=== PATIENT | female | born 1940 | race Caucasian/White ===

== ENCOUNTER 2016-08-25 11:21 | Outpatient (CLI) | payer MEDICARE, OTHER | END 2016-08-25 11:22 | disposition home or self-care (01) | DX: Z12.31 Encounter for screening mammogram for malignant neoplasm of breast (principal) ==

== ENCOUNTER 2016-10-31 08:22 | Outpatient (CLI) | payer MEDICARE, OTHER | END 2016-10-31 08:23 | disposition home or self-care (01) | DX: Z00.00 Encounter for general adult medical examination without abnormal findings (principal); K51.50 Left sided colitis without complications; R73.9 Hyperglycemia, unspecified; E78.5 Hyperlipidemia, unspecified; R07.89 Other chest pain; K59.00 Constipation, unspecified ==

== ENCOUNTER 2017-08-25 11:17 | Outpatient (CLI) | payer MEDICARE, OTHER ==
--- NOTE | 2017-08-26 16:08 | Mammography Report ---
DATE OF SERVICE: 08/25/2017 DIGITAL SCREENING MAMMOGRAM: 08/25/2017 CLINICAL INDICATION: A 77-year-old nulliparous patient with history of bilateral reduction, for screening. COMPARISON: 08/2016, 08/2015, 07/2014, 01/2013, 01/2011. TECHNIQUE: Routine CC and MLO projections were obtained of the breasts. FINDINGS: The breasts again demonstrate scattered fibroglandular densities bilaterally. Coarse and punctate, typically benign calcifications are present. No suspicious masses, clustered microcalcifications, or regions of architectural distortion are identified. IMPRESSION: BENIGN FINDINGS. RECOMMENDATION: ROUTINE ANNUAL SCREENING UNLESS OTHERWISE CLINICALLY INDICATED. BIRADS CATEGORY 2-BENIGN FINDINGS. STANDARD QUALIFYING STATEMENTS: 1. This examination was reviewed with the aid of Computer-Aided Detection (CAD). 2. A negative or benign imaging report should not delay biopsy if clinically suspicious findings are present. Consider surgical consultation if warranted. More than 5% of cancers are not identified by imaging. 3. Dense breasts may obscure an underlying neoplasm. TD: 08/26/2017 17:07
== END 2017-08-25 11:18 | disposition home or self-care (01) ==
LOC: DI 11:17
PROVIDERS: ATTEND Physician Assistant Medical
DX: Z12.31 Encounter for screening mammogram for malignant neoplasm of breast (principal)
CPT/HCPCS: 77067

== ENCOUNTER 2017-08-27 08:29 | Outpatient (CLI) | payer MEDICARE, OTHER ==
[2017-08-27 09:33] LABS: ALBUMIN 3.5 g/dL (3.2-5.5); ALBUMIN/GLOBULIN RATIO 1.1 (1.0-2.2); ALKALINE PHOSPHATASE 61 IU/L (42-121); ALT ALANINE AMINOTRANSFERASE 32 IU/L (10-60); AST ASPARTATE AMINOTRANSFERASE 36 IU/L (10-42); BILIRUBIN,TOTAL 0.9 mg/dL (0.2-1.0); BUN - BLOOD UREA NITROGEN 14 mg/dL (6-20); CALCIUM 8.9 mg/dL (8.5-10.3); CARBON DIOXIDE - CO2 25 mmol/L (21-32); CHLORIDE 104 mmol/L (101-111); CREATININE 0.7 mg/dL (0.4-1.0); GFR - MDRD 82 (>89); GLUCOSE 111 mg/dL (70-100); SODIUM 139 mmol/L (135-145); TOTAL PROTEIN 6.7 g/dL (6.7-8.2)
[2017-08-27 09:34] LABS: CHOL/HDL RATIO 4.5 (<4.4); CHOLESTEROL 253 mg/dL; HDL CHOLESTEROL 56 mg/dL; LDL CHOLESTEROL,CALCULATED 177 mg/dL; LDL/HDL RATIO 3.2 (<4.4); VLDL CHOLESTEROL 20 mg/dL
[2017-08-27 09:35] LABS: BASOPHILS % (AUTO) 0.7 %; EOSINOPHILS # (AUTO) 0.1 10^3/uL (0.0-0.7); EOSINOPHILS % (AUTO) 2.3 %; HGB - HEMOGLOBIN 13.1 g/dL (12.0-16.0); LYMPHOCYTES # (AUTO) 2.1 10^3/uL (1.5-3.5); LYMPHOCYTES % (AUTO) 34.2 %; MEAN CORPUSCULAR HEMOGLOBIN 33.8 pg (27.0-31.0); MEAN CORPUSCULAR HGB CONC 34.7 g/dL (32.0-36.0); MEAN CORPUSCULAR VOLUME 97.4 fL (81.0-99.0); MEAN PLATELET VOLUME 9.9 fL (7.9-10.8); MONOCYTES # (AUTO) 0.5 10^3/uL (0.0-1.0); MONOCYTES % (AUTO) 7.9 %; NEUTROPHILS # (AUTO) 3.4 10^3/uL (1.5-6.6); NEUTROPHILS % (AUTO) 54.9 %; PLT - PLATELET COUNT 213 10^3/uL (130-450); RED BLOOD COUNT 3.87 10^6/uL (4.20-5.40); RED CELL DISTRIBUTION WIDTH 13.1 % (12.0-15.0); WHITE BLOOD COUNT 6.3 x10^3/uL (4.8-10.8)
[2017-08-27 09:48] LABS: CRP - C-REACTIVE PROTEIN < 1.0 mg/dL (0-1.0)
[2017-08-27 10:14] LABS: HB2 TOTAL 13.9 g/dL; HEMOGLOBIN A1C 0.53 g/dL; HEMOGLOBIN A1C % 5.6 % (4.6-6.2)
== END 2017-08-27 08:30 | disposition home or self-care (01) ==
LOC: LAB 08:29
PROVIDERS: ATTEND Physician Assistant Medical
DX: Z79.899 Other long term (current) drug therapy (principal); R73.01 Impaired fasting glucose; E78.5 Hyperlipidemia, unspecified; E55.9 Vitamin D deficiency, unspecified
CPT/HCPCS: 36415; 80053; 80061; 81599; 82306; 83036; 83721; 85025; 86140

== ENCOUNTER 2017-12-15 14:28 | Outpatient (CLI) | payer MEDICARE, OTHER ==
[2017-12-15 15:19] LABS: ALBUMIN 3.6 g/dL (3.2-5.5); ALBUMIN/GLOBULIN RATIO 1.1 (1.0-2.2); BILIRUBIN,TOTAL 0.7 mg/dL (0.2-1.0); CALCIUM 8.9 mg/dL (8.5-10.3); CREATININE 0.7 mg/dL (0.4-1.0); TOTAL PROTEIN 6.9 g/dL (6.7-8.2)
== END 2017-12-15 14:29 | disposition home or self-care (01) ==
LOC: LAB 14:28
PROVIDERS: ATTEND Physician Assistant Medical
DX: I50.9 Heart failure, unspecified (principal)
CPT/HCPCS: 36415; 80053; 83880

== ENCOUNTER 2017-12-19 09:19 | Outpatient (CLI) | payer MEDICARE, OTHER | END 2017-12-19 09:20 | disposition home or self-care (01) | LOC: DI 09:19 | PROVIDERS: ATTEND Physician Assistant Medical | DX: I50.9 Heart failure, unspecified (principal); R60.0 Localized edema; E87.6 Hypokalemia | CPT/HCPCS: 80053 ==

== ENCOUNTER 2017-12-21 09:25 | Outpatient (CLI) | payer MEDICARE, OTHER | END 2017-12-21 09:26 | disposition home or self-care (01) | LOC: DI 09:25 | PROVIDERS: ATTEND Physician Assistant Medical | DX: I50.9 Heart failure, unspecified (principal); I51.7 Cardiomegaly; E87.6 Hypokalemia | CPT/HCPCS: 36415; 80053; 93306 ==

== ENCOUNTER 2017-12-21 10:23 | Outpatient (CLI) | payer MEDICARE, OTHER ==
[2017-12-21 11:49] LABS: ALBUMIN 3.7 g/dL (3.2-5.5); BILIRUBIN,TOTAL 0.7 mg/dL (0.2-1.0); CREATININE 0.5 mg/dL (0.4-1.0); TOTAL PROTEIN 7.3 g/dL (6.7-8.2)
== END 2017-12-21 10:24 | disposition home or self-care (01) ==
LOC: LAB 10:23
PROVIDERS: ATTEND Physician Assistant Medical
DX: E87.6 Hypokalemia (principal)
CPT/HCPCS: 36415; 80053

== ENCOUNTER 2017-12-23 20:05 | Outpatient (CLI) | payer MEDICARE, OTHER ==
--- NOTE | 2017-12-25 17:29 | Ultrasound Report ---
EXAM: BILATERAL LOWER EXTREMITY VENOUS ULTRASOUND EXAM DATE: 12/23/2017 08:17 PM. CLINICAL HISTORY: Pain in right and left lower limb, dependent edema. COMPARISON: 02/21/2011. TECHNIQUE: Real-time sonographic vascular imaging was performed by the bobbin dumper through the lower extremities utilizing both color-flow and Doppler spectral analysis. Multiple site safety representative static i mages were saved for review. FINDINGS: Right: Common Femoral Vein (CFV): Normal. CFV-GSV Junction: Normal. Profunda Femoral Vein (PFV): Normal. Femoral Vein (FV) Prox: Normal. Femoral Vein (FV) Mid: Normal. Femoral Vein (FV) Dist: Normal. Popliteal Vein: Normal. Posterior Tibial Veins: Normal. Peroneal Veins: Normal. Left: Common Femoral Vein (CFV): Normal. CFV-GSV Junction: Normal. Profunda Femoral Vein (PFV): Normal. Femoral Vein (FV) Prox: Normal. Femoral Vein (FV) Mid: Normal. Femoral Vein (FV) Dist: Normal. Popliteal Vein: Normal. Posterior Tibial Veins: Normal. Peroneal Veins: Normal. Other: In the right lateral leg, there is a complex debris-containing collection measuring 3.8 x 1.2 x 1 cm. In the left lateral knee, there is a second collection measuring 3 x 0.6 x 1.3 cm. IMPRESSION: 1. Soft tissue collections in bilateral knees larger on the right than on the left. Differential incl udes a seroma or hematoma. Correlate clinically. No definite connection with the joint space to sugge st a popliteal fossa cyst. 2. No evidence for deep venous thrombosis bilaterally. [facility] Referring Provider Line: [phone] SITE ID: [id number]
== END 2017-12-23 20:06 | disposition home or self-care (01) ==
LOC: DI 20:05
PROVIDERS: ATTEND Physician Assistant Medical
DX: M79.604 Pain in right leg (principal); M79.605 Pain in left leg; R60.0 Localized edema
CPT/HCPCS: 93970

== ENCOUNTER 2018-05-05 10:15 | Outpatient (CLI) | payer MEDICARE, OTHER ==
[2018-05-05 10:45] LABS: BASOPHILS # (AUTO) 0.1 10^3/uL (0.0-0.1); BASOPHILS % (AUTO) 0.8 %; EOSINOPHILS # (AUTO) 0.1 10^3/uL (0.0-0.7); EOSINOPHILS % (AUTO) 1.5 %; HGB - HEMOGLOBIN 13.9 g/dL (12.0-16.0); LYMPHOCYTES # (AUTO) 1.8 10^3/uL (1.5-3.5); LYMPHOCYTES % (AUTO) 25.9 %; MEAN CORPUSCULAR HEMOGLOBIN 34.7 pg (27.0-31.0); MEAN CORPUSCULAR HGB CONC 35.5 g/dL (32.0-36.0); MEAN CORPUSCULAR VOLUME 97.7 fL (81.0-99.0); MEAN PLATELET VOLUME 9.5 fL (7.9-10.8); MONOCYTES # (AUTO) 0.5 10^3/uL (0.0-1.0); MONOCYTES % (AUTO) 7.2 %; NEUTROPHILS # (AUTO) 4.6 10^3/uL (1.5-6.6); NEUTROPHILS % (AUTO) 64.6 %; PLT - PLATELET COUNT 239 10^3/uL (130-450); RED BLOOD COUNT 4.01 10^6/uL (4.20-5.40); RED CELL DISTRIBUTION WIDTH 13.3 % (12.0-15.0); WHITE BLOOD COUNT 7.1 x10^3/uL (4.8-10.8)
[2018-05-05 11:06] LABS: ALBUMIN 3.7 g/dL (3.2-5.5); ALBUMIN/GLOBULIN RATIO 0.9 (1.0-2.2); ALKALINE PHOSPHATASE 67 IU/L (42-121); ALT ALANINE AMINOTRANSFERASE 29 IU/L (10-60); AST ASPARTATE AMINOTRANSFERASE 35 IU/L (10-42); BILIRUBIN,TOTAL 0.8 mg/dL (0.2-1.0); BUN - BLOOD UREA NITROGEN 15 mg/dL (6-20); CARBON DIOXIDE - CO2 25 mmol/L (21-32); CHLORIDE 103 mmol/L (101-111); CREATININE 0.7 mg/dL (0.4-1.0); GFR - MDRD 81 (>89); GLUCOSE 123 mg/dL (70-100); SODIUM 137 mmol/L (135-145); TOTAL PROTEIN 7.6 g/dL (6.7-8.2)
[2018-05-05 11:20] LABS: CRP - C-REACTIVE PROTEIN < 1.0 mg/dL (0-1.0)
== END 2018-05-05 10:16 | disposition home or self-care (01) ==
LOC: LAB 10:15
PROVIDERS: ATTEND Internal Medicine Gastroenterology
DX: D12.2 Benign neoplasm of ascending colon (principal); K59.00 Constipation, unspecified; K64.8 Other hemorrhoids; K51.50 Left sided colitis without complications
CPT/HCPCS: 36415; 80053; 85025; 85651; 86140

== ENCOUNTER 2018-08-23 11:08 | Outpatient (CLI) | payer MEDICARE, OTHER ==
--- NOTE | 2018-08-23 12:22 | CT Report ---
Reason: CHRONIC SINUSITIS,DIZZINESS AND GIDDINESS,HEADACHE Procedure Date: 08/23/2018 Accession Number: [id number] / [id number] Procedure: CT - Sinuses CPT Code: FULL RESULT: EXAM: CT SINUS EXAM DATE: 08/23/2018 11:23 AM. HISTORY: Chronic sinusitis, dizziness and giddiness, headache. COMPARISONS: None. TECHNIQUE: Routine multi-axial CT imaging performed through the sinuses. Iodinated IV contrast: None. Reconstructions: Multiplanar reformats. In accordance with CT protocol optimization, one or more of the following dose reduction techniques were utilized for this exam: automated exposure control, adjustment of mA and/or KV based on patient size, or use of iterative reconstructive technique. FINDINGS: RIGHT Frontal: Normal. Ethmoid: Normal. Maxillary: Normal. Sphenoid: Normal. Drainage Pathways: The frontal recess, ostiomeatal complex and sphenoethmoidal recess are patent and normal. LEFT Frontal: Normal. Ethmoid: Normal. Maxillary: Pronounced mucoperiosteal thickening with possible dental etiology given molar protrusion towards the left maxillary sinus with dental disease. Sphenoid: Normal. Drainage Pathways: The frontal recess, ostiomeatal complex and sphenoethmoidal recess are patent and normal. Nasal Cavity: Normal. No mass or significant anatomic abnormality evident. Osseous Structures: Unremarkable. Orbits: Unremarkable. Other: None. IMPRESSION: Left maxillary chronic sinusitis with imaging suggestive of possible dental etiology. [facility]
== END 2018-08-23 11:09 | disposition home or self-care (01) ==
LOC: DI 11:08
PROVIDERS: ATTEND Physician Assistant Medical
DX: J32.0 Chronic maxillary sinusitis (principal)
CPT/HCPCS: 70486

== ENCOUNTER 2018-10-08 06:16 | Emergency (ER) | payer MEDICARE, OTHER ==
[2018-10-08 06:48] LABS: BASOPHILS # (AUTO) 0.1 10^3/uL (0.0-0.1); BASOPHILS % (AUTO) 1.4 %; EOSINOPHILS # (AUTO) 0.1 10^3/uL (0.0-0.7); EOSINOPHILS % (AUTO) 2.1 %; HGB - HEMOGLOBIN 13.5 g/dL (12.0-16.0); LYMPHOCYTES # (AUTO) 2.1 10^3/uL (1.5-3.5); LYMPHOCYTES % (AUTO) 31.4 %; MEAN CORPUSCULAR HEMOGLOBIN 34.2 pg (27.0-31.0); MEAN CORPUSCULAR HGB CONC 35.4 g/dL (32.0-36.0); MEAN CORPUSCULAR VOLUME 96.8 fL (81.0-99.0); MEAN PLATELET VOLUME 9.4 fL (7.9-10.8); MONOCYTES # (AUTO) 0.5 10^3/uL (0.0-1.0); MONOCYTES % (AUTO) 7.9 %; NEUTROPHILS # (AUTO) 3.9 10^3/uL (1.5-6.6); NEUTROPHILS % (AUTO) 57.2 %; PLT - PLATELET COUNT 240 10^3/uL (130-450); RED BLOOD COUNT 3.95 10^6/uL (4.20-5.40); RED CELL DISTRIBUTION WIDTH 13.7 % (12.0-15.0); WHITE BLOOD COUNT 6.8 x10^3/uL (4.8-10.8)
--- NOTE | 2018-10-08 06:57 | XRAY Report ---
Reason: chest pain Procedure Date: 10/08/2018 Accession Number: [id number] / [id number] Procedure: XR - Chest 1 View X-Ray CPT Code: 73426 FULL RESULT: EXAM: CHEST RADIOGRAPHY EXAM DATE: 10/08/2018 06:48 AM. CLINICAL HISTORY: Chest pain. COMPARISON: CHEST 2 VIEW PA/LAT 09/28/2015 2:21 PM. TECHNIQUE: 1 view. FINDINGS: Lungs/Pleura: Mild atelectasis or infiltrate at the right base. No pleural effusion. No pneumothorax. Mediastinum: Within exam limitations, heart is mildly enlarged. Other: Osteopenia. IMPRESSION: 1. Mild cardiomegaly. 2. Mild atelectasis or infiltrate at the right base. [facility]
[2018-10-08 07:07] LABS: ALBUMIN 3.7 g/dL (3.2-5.5); ALBUMIN/GLOBULIN RATIO 1.1 (1.0-2.2); BILIRUBIN,TOTAL 0.7 mg/dL (0.2-1.0); CALCIUM 8.9 mg/dL (8.5-10.3); CREATININE 0.5 mg/dL (0.4-1.0); TOTAL PROTEIN 7.1 g/dL (6.7-8.2)
[2018-10-08] MEDS ORDERED: IPRATROPIUM/ALBUTEROL 3 ML NEB INH STA (07:29)
--- NOTE | 2018-10-08 07:53 | ED Physician Documentation ---
PD HPI CHEST PAIN - Stated complaint Stated Complaint: CHEST PAIN - Chief complaint Chief Complaint: Cardiac - History obtained from History obtained from: Patient, Family () - History of Present Illness Timing - onset: Last night Timing - onset during: Rest Timing - details: Still present Quality: Pain Location: Left chest Worsened by: Position (Lying on left side.) Associated symptoms: Cough Similar symptoms before: Work up / diagnostics (Similar symptoms three years ago. Work-up in ED led to diagnosis of musculoskeletal pain.) - Additional information Additional information: The patient is a 78-year-old female who presents with left lower chest pain. Her pain started last night about 2 AM while in bed. She noticed a rapid heart beat at that time. The palpitations lasted for about 1 hour before resolving spontaneously. Her chest pain continues. She denies any associated shortness of breath, lightheadedness, nausea or vomitting. Her pain is worse when lying on her left side. She has had a cough that has been persistent for the past 4 months. She has undergone treatment with amoxicillin 3 months ago, and more recently had a 3-week course of amoxicillin for sinus infection. She denies fever or abdominal pain. She had a similar episode about 3 years ago. She was seen here at that time and workup was negative for cardiac etiology. At that time it was suspected musculoskeletal etiology. Review of Systems Constitutional: denies: Fever Ears: denies: Tinnitus/ringing Nose: denies: Congestion Throat: denies: Sore throat Cardiac: reports: Chest pain / pressure Respiratory: reports: Cough. denies: Dyspnea GI: denies: Abdominal Pain, Nausea, Vomiting : denies: Dysuria Skin: denies: Rash Musculoskeletal: denies: Neck pain, Back pain, Extremity pain Neurologic: denies: Focal weakness, Numbness, Headache PD PAST MEDICAL HISTORY - Past Medical History Past Medical History: Yes Cardiovascular: Hypertension, Coronary artery disease Endocrine/Autoimmune: None HEENT: Glaucoma - Past Surgical History Past Surgical History: Yes General: Cholecystectomy, Appendectomy Ortho: Hip replacement /MULTIGRAPHER: Breast reduction Cardiovascular: Other - Present Medications Home Medications: Ambulatory Orders Medication Instructions Recorded Confirmed Furosemide [Lasix] 40 mg PO DAILY 09/28/15 01/16/16 Lisinopril 10 mg PO DAILY 09/28/15 01/16/16 Mesalamine [Lialda] 4 packet PO DAILY 09/28/15 01/16/16 Metoprolol Tartrate 25 mg PO DAILY 09/28/15 01/16/16 Potassium Chloride 10 meq PO DAILY 09/28/15 01/16/16 Remicade 09/28/15 traMADol [Ultram] 50 mg PO Q4-6H PRN #20 tablet 01/16/16 Albuterol Sulf [Ventolin Hfa 1 - 2 puffs INH Q4HR PRN #1 inhaler 10/08/18 Inhaler] - Allergies Allergies/Adverse Reactions: Allergies Allergy/AdvReac Type Severity Reaction Status Date / Time ciprofloxacin [From Cipro] Allergy Edema Verified 10/08/18 06:35 ciprofloxacin HCl * Allergy Edema Verified 10/08/18 06:35 [From Cipro] metronidazole [From Flagyl] Allergy Emesis Verified 10/08/18 06:35 - Social History Does the pt smoke?: No Smoking Status: Never smoker Does the pt drink ETOH?: Yes Does the pt have substance abuse?: No - Immunizations Immunizations are current?: No - POLST Patient has POLST: No PD ED PE NORMAL - Vitals Vital signs reviewed: Yes (hypertensive) - General General: Alert and oriented X 3, Well developed/nourished - HEENT HEENT: Atraumatic, Pharynx benign - Neck Neck: No adenopathy, No JVD - Cardiac Cardiac: RRR, No murmur - Respiratory Respiratory: No respiratory distress, Other (Expiratory wheezing on the left, clear on the right.) - Abdomen Abdomen: Soft, Non tender, Other (Rotund abdomen.) - Back Back: No CVA TTP - Derm Derm: No rash - Extremities Extremities: No calf tenderness / cord, Other (Trace pedal edema bilaterally.) - Neuro Neuro: Alert and oriented X 3, No motor deficit, No sensory deficit Results - Vitals Vitals: Oxygen O2 Source Room air - EKG (time done) 06:29 Rate: Rate (enter#) (64) Rhythm: NSR [place]: Normal Intervals: Normal [place] QRS: Normal Ischemia: Normal ST segments Compare to prior EKG: Unchanged from prior EKG Computer interpretation: Agree with computer - Labs Labs: Laboratory Tests 10/08/18 10/08/18 10/08/18 06:40 06:40 06:40 WBC 6.8 RBC 3.95 L Hgb 13.5 Hct 38.3 MCV 96.8 MCH 34.2 H MCHC 35.4 RDW 13.7 Plt Count 240 MPV 9.4 Neut # (Auto) 3.9 Lymph # (Auto) 2.1 [place] # (Auto) 0.5 Eos # (Auto) 0.1 Baso # (Auto) 0.1 Absolute Nucleated RBC 0.00 Nucleated RBC % 0.0 Sodium 137 Potassium 3.8 Chloride 101 Carbon Dioxide 25 Anion Gap 11.0 BUN 16 Creatinine 0.5 Estimated GFR (MDRD) 120 Glucose 112 H Calcium 8.9 Total Bilirubin 0.7 AST 32 ALT 26 Alkaline Phosphatase 65 Troponin I < 0.04 B-Natriuretic Peptide Total Protein 7.1 Albumin 3.7 Globulin 3.4 Albumin/Globulin Ratio 1.1 Lipase 35 10/08/18 06:40 WBC RBC Hgb Hct MCV MCH MCHC RDW Plt Count MPV Neut # (Auto) Lymph # (Auto) [place] # (Auto) Eos # (Auto) Baso # (Auto) Absolute Nucleated RBC Nucleated RBC % Sodium Potassium Chloride Carbon Dioxide Anion Gap BUN Creatinine Estimated GFR (MDRD) Glucose Calcium Total Bilirubin AST ALT Alkaline Phosphatase Troponin I B-Natriuretic Peptide 140 H Total Protein Albumin Globulin Albumin/Globulin Ratio Lipase - Rads (name of study) 1-view CXR Radiology: Prelim report reviewed, EMP read contemporaneously, See rad report (Mild cardiomegaly. Mild atelectasis or infiltrate at the right base.) PD MEDICAL DECISION MAKING - ED course Complexity details: reviewed results, re-evaluated patient, considered differential, d/w patient ED course: The patient's presentation is most consistent with acute asthmatic bronchitis. Her chest x-ray does not reveal evidence of pneumonia or congestive heart failure. Her electrocardiogram reveals no acute ischemic abnormalities. Her troponin is negative, and BNP is barely above the normal range at 140. Treatment in the emergency department included administration of DuoNeb nebulizer, which improved her air movement and cleared her expiratory wheezing. She is being discharged with a prescription for albuterol inhaler. I discussed with her and her the results of her workup, outpatient treatment and follow-up, as well as potentially worrisome signs or symptoms that should prompt reevaluation in the emergency department. Departure - Departure Disposition: 01 Home, Self Care Clinical Impression: Asthmatic bronchitis Qualifiers: Asthma severity: moderate Asthma persistence: persistent Asthma complication type: with acute exacerbation Qualified Code(s): J45.41 - Moderate persistent asthma with (acute) exacerbation Condition: Stable Instructions: ED Bronchitis Asthmatic Follow-Up: Junie Du PA-C [Primary Care Provider] - Prescriptions: Albuterol Sulf [Ventolin Hfa Inhaler] 1 - 2 puffs INH Q4HR PRN #1 inhaler PRN Reason: Shortness Of Air/Wheezing Comments: Use the albuterol inhaler every 4 hours as prescribed if needed for cough or wheezing. Follow-up with your primary physician within 1-2 weeks. Call to schedule an appointment. Consider discussing with your primary physician the possibility of changing from lisinopril to another antihypertensive medication, if your cough persists. Return to the emergency department if you develop increasing difficulty breathing, increasing chest pain, or otherwise worsening symptoms. Discharge Date/Time: 10/08/18 08:47
[2018-10-08 08:50] VITALS: BP 172/77
== END 2018-10-08 08:47 | disposition home or self-care (01) ==
LOC: ED 06:16
DX: J45.41 Moderate persistent asthma with (acute) exacerbation (principal); I10 Essential (primary) hypertension; I25.10 Atherosclerotic heart disease of native coronary artery without angina pectoris; Z96.649 Presence of unspecified artificial hip joint
CPT/HCPCS: 36415; 71045; 80053; 83690; 83880; 84484; 85025; 93005; 94640; 99283; 99284

== ENCOUNTER 2018-11-11 15:01 | Outpatient (CLI) | payer MEDICARE, OTHER ==
--- NOTE | 2018-11-12 09:38 | Mammography Report ---
Reason: SCREENING MAMMO Procedure Date: 11/11/2018 Accession Number: [id number] / [id number] Procedure: [facility] - Screening Mammo w/Milind CPT Code: FULL RESULT: EXAM: Screening Mammo w/Milind DATE: 11/11/2018 3:34 PM CLINICAL HISTORY: Screening encounter. History of nulliparity and early menses. TECHNIQUE: (B) - Bilateral CC and MLO views were obtained. COMPARISON: 08/25/2017 and 08/07/2015. PARENCHYMAL PATTERN: (A) - The breast(s) demonstrate(s) scattered fibroglandular densities. FINDINGS: The bilateral breasts demonstrate a stable nodular parenchymal pattern with the exception of a right lower breast nodular cluster 6 cm from the nipple on 3-D image 20 in the MLO projection and 3-D image 17 in the CC projection which appears to demonstrate a subtle increase in calcifications over time. This requires additional spot views and possibly ultrasound for clarification, cluster size up to 0.8 cm approximately 6 cm deep to the nipple on both projections. There are no suspicious masses, calcifications, or areas of distortion in the left breast. IMPRESSION: Incomplete examination. BI-RADS category 0. RECOMMENDATION: (ADDMU) - Additional views using both Mammography and Ultrasound recommended. Right breast spot magnification views and ultrasound. BI-RADS CATEGORY: (0) - Incomplete Examination - need additional evaluation. STANDARD QUALIFYING STATEMENTS: 1. This examination was not reviewed with the aid of Computer-Aided Detection (CAD). 2. A negative or benign imaging report should not preclude biopsy if clinically suspicious findings are present. 3. Dense breasts may obscure an underlying neoplasm. 4. This examination was reviewed with the aid of 3D breast imaging (tomosynthesis).
== END 2018-11-11 15:02 | disposition home or self-care (01) ==
LOC: DI 15:01
DX: Z12.31 Encounter for screening mammogram for malignant neoplasm of breast (principal)
CPT/HCPCS: 77063; 77067

== ENCOUNTER 2018-11-25 09:44 | Outpatient (CLI) | payer MEDICARE, OTHER ==
--- NOTE | 2018-11-25 11:43 | Mammography Report ---
Reason: ABNORMAL MAMMOGRAM Procedure Date: 11/25/2018 Accession Number: [id number] / [id number] Procedure: [facility]ORIAN - Diag Special Views Dig RT CPT Code: FULL RESULT: EXAM: Diag Special Views Dig RT DATE: 11/25/2018 10:17 AM CLINICAL HISTORY: Diagnostic mammogram. The patient is recalled from screening for findings of a right breast nodule cluster with increasing calcifications. TECHNIQUE: (R) - Right right ML and magnified ML as well as magnified CC images are obtained. Focused right breast ultrasound was obtained. COMPARISON: 11/11/2018 through 08/07/2015. PARENCHYMAL PATTERN: (A) - The breast(s) demonstrate(s) scattered fibroglandular densities. FINDINGS: The nodular cluster in the right lower breast approximately 6 cm from the nipple is redemonstrated with subtle fine calcifications confirmed on magnification views. Focused right breast ultrasound is performed which demonstrates a cluster of cysts at the 6:00 position of the right breasts which corresponds in size and appearance to the mammographic finding. 2 of the sister a wider than tall, demonstrate increased through transmission and appear simple, typically benign. A third cyst measuring 0.6 x 0.8 x 0.4 cm demonstrates a complex component and foci of echogenic shadowing consistent with the mammographic calcifications, probably benign. IMPRESSION: Probably Benign. BI-RADS category 3. RECOMMENDATION: (6MOS) - Recommend 6 month follow-up exam. Right breast spot magnification views as well as right breast focal ultrasound. BI-RADS CATEGORY: (3) - Probably Benign. STANDARD QUALIFYING STATEMENTS: 1. This examination was not reviewed with the aid of Computer-Aided Detection (CAD). 2. A negative or benign imaging report should not preclude biopsy if clinically suspicious findings are present. 3. Dense breasts may obscure an underlying neoplasm. 4. This examination was reviewed with the aid of 3D breast imaging (tomosynthesis).
== END 2018-11-25 09:45 | disposition home or self-care (01) ==
LOC: DI 09:44
PROVIDERS: ATTEND Physician Assistant Medical
DX: R92.8 Other abnormal and inconclusive findings on diagnostic imaging of breast (principal)
CPT/HCPCS: 76642

== ENCOUNTER 2018-12-17 15:37 | Outpatient (CLI) | payer MEDICARE, OTHER ==
--- NOTE | 2018-12-20 11:38 | CT Report ---
Reason: CHRONIC SINUSITIS Procedure Date: 12/17/2018 Accession Number: [id number] / [id number] Procedure: CT - Sinuses CPT Code: FULL RESULT: EXAM: CT SINUS EXAM DATE: 12/17/2018 04:25 PM. HISTORY: CHRONIC SINUSITIS. COMPARISONS: SINUSES 08/23/2018 11:10 AM. TECHNIQUE: Routine multi-axial CT imaging performed through the sinuses. Iodinated IV contrast: None. Reconstructions: Multiplanar reformats. In accordance with CT protocol optimization, one or more of the following dose reduction techniques were utilized for this exam: automated exposure control, adjustment of mA and/or KV based on patient size, or use of iterative reconstructive technique. FINDINGS: RIGHT Frontal: Normal. Ethmoid: Normal. Maxillary: Trace mucosal thickening Sphenoid: Normal. Drainage Pathways: The frontal recess, ostiomeatal complex and sphenoethmoidal recess are patent and normal. LEFT Frontal: Normal. Ethmoid: Normal. Maxillary: Mild mucosal thickening. This is improved. Sphenoid: Normal. Drainage Pathways: The frontal recess, ostiomeatal complex and sphenoethmoidal recess are patent and normal. Nasal Cavity: Mild nasal septal curvature convex left with left-sided spur Osseous Structures: Unremarkable. Orbits: Unremarkable. Other: None. IMPRESSION: 1. Mild bilateral maxillary sinus disease. This is improved in the left maxillary sinus. [facility]
== END 2018-12-17 15:38 | disposition home or self-care (01) ==
LOC: DI 15:37
PROVIDERS: ATTEND Physician Assistant Medical
DX: J32.0 Chronic maxillary sinusitis (principal)
CPT/HCPCS: 70486

== ENCOUNTER 2018-12-21 13:07 | Emergency (ER) | payer MEDICARE, OTHER ==
--- NOTE | 2018-12-21 13:32 | ED Physician Documentation ---
PD HPI CHEST PAIN - Stated complaint Stated Complaint: ELEVATED HR/HEAD PRESSURE - Chief complaint Chief Complaint: General - History obtained from History obtained from: Patient - History of Present Illness Timing - onset: Other (78-year-old woman with history of hypertension presents with labile blood pressures, she brings in readings from home, sometimes her blood pressures are normal including yesterday but often running up to 180 systolic over 100 diastolic. Her pulse is been usually in the high 50s and low 60s. She presents with mild left lower chest pain that is been going on for about 5 days and a prickly sensation in her head when the blood pressure gets high. The nurse noted in triage that she has asymmetric blood pressures with a significant variation between the left and the right. There is no back pain except for chronic low back pain. No shortness of breath but she notes that she has had a cough for 6 months.) Review of Systems Ten Systems: 10 systems reviewed and negative Constitutional: denies: Fever, Chills, Fatigue Nose: reports: Rhinorrhea / runny nose, Congestion, Sinus pressure / pain Throat: denies: Sore throat Cardiac: reports: Chest pain / pressure. denies: Palpitations Respiratory: reports: Cough, Wheezing. denies: Dyspnea GI: denies: Abdominal Pain PD PAST MEDICAL HISTORY - Past Medical History Cardiovascular: Hypertension Endocrine/Autoimmune: None HEENT: Glaucoma - Past Surgical History Past Surgical History: Yes General: Cholecystectomy, Appendectomy Ortho: Hip replacement /[employer]: Breast reduction Cardiovascular: Other - Present Medications Home Medications: Ambulatory Orders Medication Instructions Recorded Confirmed Furosemide [Lasix] 40 mg PO DAILY 09/28/15 01/16/16 Lisinopril 10 mg PO DAILY 09/28/15 01/16/16 Mesalamine [Lialda] 4 packet PO DAILY 09/28/15 01/16/16 Metoprolol Tartrate 25 mg PO DAILY 09/28/15 01/16/16 Potassium Chloride 10 meq PO DAILY 09/28/15 01/16/16 Remicade 09/28/15 traMADol [Ultram] 50 mg PO Q4-6H PRN #20 tablet 01/16/16 Albuterol Sulf [Ventolin Hfa 1 - 2 puffs INH Q4HR PRN #1 inhaler 10/08/18 Inhaler] - Allergies Allergies/Adverse Reactions: Allergies Allergy/AdvReac Type Severity Reaction Status Date / Time ciprofloxacin [From Cipro] Allergy Edema Verified 12/21/18 13:11 ciprofloxacin HCl * Allergy Edema Verified 12/21/18 13:11 [From Cipro] metronidazole [From Flagyl] Allergy Emesis Verified 12/21/18 13:11 - Social History Does the pt smoke?: No Smoking Status: Never smoker Does the pt drink ETOH?: Yes Does the pt have substance abuse?: No - Family History Family history: reports: Non contributory - Immunizations Immunizations are current?: No - POLST Patient has POLST: No PD ED PE NORMAL - Vitals Vital signs reviewed: Yes - General General: Alert and oriented X 3, No acute distress - HEENT HEENT: PERRL, EOMI, Ears normal - Neck Neck: Supple, no meningeal sign, No bony TTP - Cardiac Cardiac: RRR, No murmur - Respiratory Respiratory: No respiratory distress, Other (Mild B wheezes) - Abdomen Abdomen: Normal bowel sounds, Soft, Non tender - Back Back: No CVA TTP, No spinal TTP - Derm Derm: Normal color, Warm and dry - Extremities Extremities: Other (Chronic unchanged bilateral pitting pedal edema) - Neuro Neuro: Alert and oriented X 3, Normal speech Results - Vitals Vitals: Vital Signs - 24 hr 12/21/18 12/21/18 12/21/18 13:11 13:18 13:50 Temperature 36.9 C Heart Rate 83 75 Respiratory 14 18 Rate Blood Pressure 180/86 H 180/86 H 194/98 H O2 Saturation 99 96 12/21/18 12/21/18 14:19 15:04 Temperature Heart Rate 52 L 64 Respiratory 18 18 Rate Blood Pressure 150/80 H 183/60 H O2 Saturation 95 99 Oxygen O2 Source Room air - EKG (time done) 1310 Rate: Rate (enter#) (85) Rhythm: NSR (There is some irregularity, there is a little bit of artifact so hard to tell the details.) [place]: Normal Intervals: Normal [place] QRS: Normal Ischemia: Non specific changes (Flat T waves kind of diffusely, unchanged from October 08 of this year.) - Labs Labs: Laboratory Tests 12/21/18 12/21/18 12/21/18 13:44 13:44 13:44 WBC 8.9 RBC 4.17 L Hgb 13.8 Hct 41.0 MCV 98.2 MCH 33.2 H MCHC 33.8 RDW 13.8 Plt Count 247 MPV 9.2 Neut # (Auto) 6.6 Lymph # (Auto) 1.7 [place] # (Auto) 0.5 Eos # (Auto) 0.0 Baso # (Auto) 0.1 Absolute Nucleated RBC 0.00 Nucleated RBC % 0.0 Sodium 140 Potassium 3.1 L Chloride 101 Carbon Dioxide 26 Anion Gap 13.0 BUN 15 Creatinine 0.7 Estimated GFR (MDRD) 81 L Glucose 169 H Calcium 9.1 Total Bilirubin 0.7 AST 33 ALT 25 Alkaline Phosphatase 69 Troponin I < 0.04 Total Protein 7.5 Albumin 3.9 Globulin 3.6 Albumin/Globulin Ratio 1.1 Lipase 28 - Rads (name of study) CT Angio chest Radiology: EMP read contemporaneously (Borderline a ascending aortic root dilatation, bibasilar air trapping which could reflect reactive airways disease or asthma etc.) PD MEDICAL DECISION MAKING - ED course ED course: 78-year-old woman with labile blood pressures, however her pulses have been on the low side. She is currently on a low-dose of metoprolol, lisinopril, and [place]. She has asymmetric blood pressures but no severe chest pain. CT angiogram of the chest was done without evidence of dissection or blockage. Potassium was low and repleted orally. EKG is without change and troponin is undetectable. Departure - Departure Disposition: 01 Home, Self Care Clinical Impression: Uncontrolled hypertension, Hypokalemia, Asymmetrical brachial pulses, Aortic root dilatation Condition: Good Record reviewed to determine appropriate education?: Yes Instructions: Hypokalemia Dc Comments: Let Dr. Du know that we sent a test for plasma metanephrines today to screen you for pheochromocytoma. This test will not be complete today. It is imperative to follow-up with your doctor for results. Double your lisinopril from 10 mg to 20 mg a day pending follow-up, continue c hecking your blood pressures and recording them for your physician. Return for new or worsening symptoms. Recommend an echocardiogram in the next few months and follow-up. Discussed this with your physician.
[2018-12-21] MEDS ORDERED: IOVERSOL 320 100 ML VIAL IVP ONE ×3 (13:54→15:03)
[2018-12-21 13:59] LABS: BASOPHILS # (AUTO) 0.1 10^3/uL (0.0-0.1); BASOPHILS % (AUTO) 0.6 %; EOSINOPHILS % (AUTO) 0.5 %; HGB - HEMOGLOBIN 13.8 g/dL (12.0-16.0); LYMPHOCYTES # (AUTO) 1.7 10^3/uL (1.5-3.5); LYMPHOCYTES % (AUTO) 19.6 %; MEAN CORPUSCULAR HEMOGLOBIN 33.2 pg (27.0-31.0); MEAN CORPUSCULAR HGB CONC 33.8 g/dL (32.0-36.0); MEAN CORPUSCULAR VOLUME 98.2 fL (81.0-99.0); MEAN PLATELET VOLUME 9.2 fL (7.9-10.8); MONOCYTES # (AUTO) 0.5 10^3/uL (0.0-1.0); MONOCYTES % (AUTO) 5.2 %; NEUTROPHILS # (AUTO) 6.6 10^3/uL (1.5-6.6); NEUTROPHILS % (AUTO) 74.1 %; PLT - PLATELET COUNT 247 10^3/uL (130-450); RED BLOOD COUNT 4.17 10^6/uL (4.20-5.40); RED CELL DISTRIBUTION WIDTH 13.8 % (12.0-15.0); WHITE BLOOD COUNT 8.9 x10^3/uL (4.8-10.8)
[2018-12-21 14:12] LABS: ALBUMIN 3.9 g/dL (3.2-5.5); ALBUMIN/GLOBULIN RATIO 1.1 (1.0-2.2); BILIRUBIN,TOTAL 0.7 mg/dL (0.2-1.0); CALCIUM 9.1 mg/dL (8.5-10.3); CREATININE 0.7 mg/dL (0.4-1.0); TOTAL PROTEIN 7.5 g/dL (6.7-8.2)
[2018-12-21] MEDS ORDERED: POTASSIUM CHLORIDE 20 MEQ TABLET PO STA (14:30)
[2018-12-21] MEDS ORDERED: LISINOPRIL 5 MG TABLET PO STA (15:05)
--- NOTE | 2018-12-21 15:20 | CT Report ---
Reason: aorta protocol, chest pain, assymetric BPs Procedure Date: 12/21/2018 Accession Number: [id number] / [id number] Procedure: CT - ANGIO CHEST W/WO CPT Code: FULL RESULT: EXAM: CT ANGIOGRAM CHEST EXAM DATE: 12/21/2018 02:40 AM. CLINICAL HISTORY: Aorta protocol, chest pain, assymetric BPs. COMPARISON: CHEST ANGIO 12/21/2018 2:40 PM. TECHNIQUE: Routine helical imaging was performed through the chest in the pulmonary arterial phase. IV Contrast: opti 320 80mL. Reconstructions: Coronal 3-D MIP reconstructions.Sagittal and coronal. In accordance with CT protocol optimization, one or more of the following dose reduction techniques were utilized for this exam: automated exposure control, adjustment of mA and/or KV based on patient size, or use of iterative reconstructive technique. FINDINGS: Pulmonary Arteries: Diagnostic quality: Adequate through the segmental arteries. Negative for an acute pulmonary embolism. The main pulmonary artery appears normal in size. Lungs/Pleura: No consolidative process or mass. No suspicious pulmonary nodule. There is mild to moderate bilateral lower lobe lobular air trapping. There is a linear bandlike density in the right middle lobe consistent with atelectasis. Negative for pleural effusion and pneumothorax. Mediastinum: The heart is enlarged. There is no pericardial effusion. No mediastinal or hilar lymphadenopathy. Thoracic Aorta: The ascending thoracic aorta is borderline measuring 4 cm in diameter. No intramural hemorrhage or dissection. Descending thoracic aorta demonstrates mild to moderate tortuosity without aneurysm. The branches of the aortic arch are tortuous. No evidence of significant stenosis of the bilateral subclavian arteries or other aortic arch branches. Upper Abdomen: There are findings of previous proximal stomach surgery. Other: None. IMPRESSION: 1. Borderline diameter ascending aorta at 4 cm. No aneurysm or dissection. No significant narrowing of the aortic arch branches. 2. Negative for acute pulmonary embolism. 3. Cardiomegaly. 4. Clear lungs. 5. Mild to moderate bibasilar air trapping which could reflect asthma, other reactive airways disease, bronchiolitis obliterans or hypersensitivity. RADIA
[2018-12-21 15:54] VITALS: BP 185/77
== END 2018-12-21 15:53 | disposition home or self-care (01) ==
LOC: ED 13:07
DX: I10 Essential (primary) hypertension (principal); E87.6 Hypokalemia; I77.819 Aortic ectasia, unspecified site; R09.89 Other specified symptoms and signs involving the circulatory and respiratory systems
CPT/HCPCS: 36415; 71275; 80053; 83690; 83835; 84484; 85025; 93005; 99284; A9270; Q9967

== ENCOUNTER 2019-01-27 08:00 | Outpatient (CLI) | payer MEDICARE, OTHER ==
[2019-01-27 15:58] LABS: CALCIUM 9.4 mg/dL (8.5-10.3); CREATININE 0.7 mg/dL (0.4-1.0)
[2019-01-27 16:18] LABS: THYROID STIMULATING HORMONE 2.05 uIU/mL (0.34-5.60)
[2019-01-27 16:20] LABS: FREE T4 (FREE THYROXINE) 0.99 ng/dL (0.58-1.64)
== END 2019-01-27 23:59 | disposition home or self-care (01) ==
LOC: LAB.R 08:00
PROVIDERS: ATTEND Internal Medicine Cardiovascular Disease
DX: I10 Essential (primary) hypertension (principal)
CPT/HCPCS: 80048; 84439; 84443

== ENCOUNTER 2019-02-05 08:18 | Outpatient (CLI) | payer MEDICARE, OTHER ==
--- NOTE | 2019-02-07 08:41 | Ultrasound Report ---
Reason: HTN Procedure Date: 02/05/2019 Accession Number: [id number] / [id number] Procedure: US - Arterial Visceral Complete CPT Code: FULL RESULT: EXAM: RENAL ARTERY DOPPLER ULTRASOUND EXAM DATE: 02/05/2019 09:27 AM. CLINICAL HISTORY: Hypertension. COMPARISON: None. TECHNIQUE: Real-time sonographic vascular imaging was performed by the tunneling machine operator through the renal arterial system with a linear transducer utilizing color-flow, Doppler flow, and spectral analysis. Multiple traffic representative static images were saved for review. FINDINGS: Study is limited by poor acoustic windows, especially affecting the left side. Cortical thickness and appearance of the kidneys is symmetric with the right kidney measuring up to 9.5 cm in maximal sagittal dimension and the left kidney up to 10.4 cm in maximal sagittal dimension. Simple-appearing renal cysts are noted. All sampled vessels are patent by color and spectral Doppler. Right Kidney: 9.5 x 4.6 x 4.2 cm. Echotexture: Within normal limits. Right Segmental Artery: Upper pole: PSV 39 cm/sec, RI 0.77. Mid pole: PSV 31 cm/sec, RI 0.71. Lower pole: PSV 26 cm/sec, RI 0.63. Right Renal Artery: Origin: PSV 71 cm/sec, RA/AO 0.6. Proximal: PSV 202 cm/sec, RA/AO 1.7. Mid: PSV 84 cm/sec, RA/AO 0.7. Distal: PSV 102 cm/sec, RA/AO 0.9. Aorta PSV: 120 cm/sec. RRV Patent: Yes. Left Kidney: 10.4 x 3.8 x 6.5 cm. Echotexture: Within normal limits. Left Segmental Artery: Upper pole: PSV 50 cm/sec, RI 0.76. Mid pole: PSV 24 cm/sec, RI 0.70. Lower pole: PSV 41 cm/sec, RI 0.72. Left Renal Artery: Origin: PSV 87 cm/sec, RA/AO 0.7. Proximal: PSV 42 cm/sec, RA/AO 0.4. Mid: PSV 50 cm/sec, RA/AO 0.4. Distal: PSV 63 cm/sec, RA/AO 0.5. LRV Patent: Yes. IMPRESSION: Mild ostial stenosis at the proximal right renal artery by velocity criteria only, given preservation of downstream waveforms and absence of meaningful elevation of the renal artery-aortic ratio, this is felt to likely be less than 50% of the lumen. If clinically indicated, CTA of the abdomen could be performed for further clarification. The technologist reports pulsatile flow in the left renal vein with no image labeled left renal vein submitted to the radiologist for review. There is no asymmetric atrophy of the left kidney, no pseudoaneurysm is detected and no sonographic evidence of steal phenomenon of the arterial inflow is detected. Unless there is a history of trauma to the left flank or the potential for iatrogenic injury, this is felt to be highly unlikely. The finding could also be clarified by CTA of the abdomen in the correct clinical setting. CRITERIA FOR CLASSIFICATION OF RENAL ARTERY (RA) DISEASE BY DUPLEX SCANNING: RA Diameter Reduction/ RA PSV/ RAR: Normal, < 180 cm/sec, < 3.5 < 60%, >= 180 cm/sec, < 3.5 >= 60%, >= 180 cm/sec, >= 3.5 Total Occlusion: Undetectable; Not applicable RADIA
== END 2019-02-05 08:19 | disposition home or self-care (01) ==
LOC: DI 08:18
PROVIDERS: ATTEND Internal Medicine Cardiovascular Disease
DX: I10 Essential (primary) hypertension (principal); I70.1 Atherosclerosis of renal artery
CPT/HCPCS: 93975

== ENCOUNTER 2019-04-08 08:01 | Outpatient (CLI) | payer MEDICARE, OTHER ==
[2019-04-08 08:55] LABS: CALCIUM 9.1 mg/dL (8.5-10.3); CREATININE 0.6 mg/dL (0.4-1.0)
== END 2019-04-08 08:02 | disposition home or self-care (01) ==
LOC: LAB 08:01
PROVIDERS: ATTEND Internal Medicine Cardiovascular Disease
DX: I10 Essential (primary) hypertension (principal)
CPT/HCPCS: 36415; 80048

== ENCOUNTER 2019-04-12 13:43 | Observation (INO) | payer MEDICARE, OTHER ==
--- NOTE | 2019-04-12 15:46 | ED Physician Documentation ---
History of Present Illness - Stated complaint Stated Complaint: GLF - Chief complaint Chief Complaint: General - History obtained from History obtained from: Patient (79-year-old woman was washing dishes at the sink today at 1:00 and started to feel vertiginous. She briefly could not walk and kind of keeled over sideways. She was helped down to the ground by her , there was no injury. At this point the vertigo is gone, but she is having some trouble reading and with her vision. No headache.) Review of Systems Ten Systems: 10 systems reviewed and negative Constitutional: denies: Fever, Chills Cardiac: denies: Chest pain / pressure, Palpitations Respiratory: denies: Dyspnea, Cough PD PAST MEDICAL HISTORY - Past Medical History Cardiovascular: Hypertension Endocrine/Autoimmune: None HEENT: Glaucoma - Past Surgical History Past Surgical History: Yes General: Cholecystectomy, Appendectomy Ortho: Hip replacement /SHADE HANGER: Breast reduction Cardiovascular: Other - Present Medications Home Medications: Ambulatory Orders Medication Instructions Recorded Confirmed Furosemide [Lasix] 40 mg PO DAILY 09/28/15 01/16/16 RX: Lisinopril 10 mg PO TID 09/28/15 01/16/16 RX: Metoprolol Tartrate 25 mg PO DAILY 09/28/15 01/16/16 RX: Potassium Chloride 10 meq PO DAILY 09/28/15 01/16/16 Remicade 0 mg IV 09/28/15 Cholecalciferol (Vitamin D3) 12,000 unit PO 04/12/19 [Vitamin D3] Lactobacill 46/B.animal/Inulin 1 each PO 04/12/19 [Probiotic-10 10 Bill Cell Cap] Mecobalamin [B-12] 5,000 mcg PO 04/12/19 Multivitamin [Multivitamins] 1 each PO 04/12/19 [place]-3/Dha/Epa/Fish Oil [Fish Oil 4,800 mg PO DAILY 04/12/19 04/12/19 1,000 mg Softgel] Polyethylene Glycol 3350 [Base 1 gm MC 04/12/19 B,Polyethylene [id number]] RX: Milk Thistle 0 mg PO 04/12/19 RX: Spironolactone 0 mg PO DAILY 04/12/19 04/12/19 Turmeric Root Extract [Turmeric] 1,160 mg PO 04/12/19 Ubidecarenone [Co Q-10] 100 mg PO DAILY 04/12/19 04/12/19 - Allergies Allergies/Adverse Reactions: Allergies Allergy/AdvReac Type Severity Reaction Status Date / Time ciprofloxacin [From Cipro] Allergy Edema Verified 12/21/18 13:11 ciprofloxacin HCl * Allergy Edema Verified 12/21/18 13:11 [From Cipro] metronidazole [From Flagyl] Allergy Emesis Verified 12/21/18 13:11 - Social History Does the pt smoke?: No Smoking Status: Never smoker Does the pt drink ETOH?: Yes Does the pt have substance abuse?: No - Immunizations Immunizations are current?: No - POLST Patient has POLST: No PD ED PE NORMAL - Vitals Vital signs reviewed: Yes - General General: Alert and oriented X 3, No acute distress - HEENT HEENT: PERRL, EOMI - Neck Neck: Supple, no meningeal sign, No bony TTP - Cardiac Cardiac: RRR, No murmur - Respiratory Respiratory: No respiratory distress, Clear bilaterally - Abdomen Abdomen: Soft, Non tender - Back Back: No CVA TTP, No spinal TTP - Derm Derm: Normal color, Warm and dry - Extremities Extremities: No edema, No calf tenderness / cord - Neuro Neuro: Alert and oriented X 3, No motor deficit, No sensory deficit, Normal speech, Other (On NIH stroke scale, the only notable positive finding is a left hemianopsia in both eyes. Total score =1) - Psych Psych: Normal mood, Normal affect Results - Vitals Vitals: Vital Signs - 24 hr 04/12/19 04/12/19 04/12/19 13:49 16:06 18:28 Temperature 36 C L 36.6 C Heart Rate 78 56 L 63 Respiratory 18 14 11 L Rate Blood Pressure 151/92 H 139/69 H 155/73 H O2 Saturation 100 100 100 04/12/19 04/12/19 19:30 20:30 Temperature Heart Rate 59 L 60 Respiratory 12 15 Rate Blood Pressure 150/93 H 149/63 H O2 Saturation 100 100 Oxygen O2 Source Room air - EKG (time done) 1411 Rate: Rate (enter#) (58) Rhythm: NSR [place]: Normal Intervals: Normal UT QRS: Low voltage Computer interpretation: Agree with computer - Labs Labs: Laboratory Tests 04/12/19 04/12/19 15:57 15:57 WBC 8.5 RBC 3.89 L Hgb 13.4 Hct 38.5 MCV 99.0 MCH 34.4 H MCHC 34.8 RDW 13.9 Plt Count 249 MPV 10.6 Neut # (Auto) 6.0 Lymph # (Auto) 1.7 Ralls # (Auto) 0.7 Eos # (Auto) 0.1 Baso # (Auto) 0.0 Absolute Nucleated RBC 0.00 Nucleated RBC % 0.0 Sodium 140 Potassium 3.9 Chloride 102 Carbon Dioxide 28 Anion Gap 10.0 BUN 19 Creatinine 0.7 Estimated GFR (MDRD) 81 L Glucose 107 H Calcium 9.4 Total Bilirubin 0.7 AST 27 ALT 25 Alkaline Phosphatase 59 Total Protein 7.4 Albumin 3.9 Globulin 3.5 Albumin/Globulin Ratio 1.1 Lipase 28 - Rads (name of study) CTA Head Radiology: EMP read contemporaneously (Right METAL CONTROL COORDINATOR P3 branch vessel occlusion consistent with findings of right METAL CONTROL COORDINATOR territory subacute ischemic stroke. No other occlusions.) MRI Brain Radiology: EMP read contemporaneously (Acute right METAL CONTROL COORDINATOR infarct, left distal vertebral artery is poorly visualized, left cerebral arachnoid cyst.) PD MEDICAL DECISION MAKING - ED course ED course: 79-year-old woman with resolved vertigo, now a left homonymous having an abscess yet. Given the improving symptoms TPA was not considered especially given the non-disabling exam. Sent for an MRI which confirmed a right METAL CONTROL COORDINATOR infarct which explains her hemianopsia. This was followed by CT angiography to evaluate for large vessel occlusion. This was notable for right METAL CONTROL COORDINATOR P3 occlusion, I spoke with Dr. Du at [facility] who confirmed that this was not consistent with a large vessel occlusion and only conservative stroke work-up was necessary. Spoke with Dr. Huff for admission at 9:15 PM. Departure - Departure Disposition: ED Place in Observation Clinical Impression: CVA (cerebral vascular accident) Condition: Serious Discharge Date/Time: 04/12/19 21:50
[2019-04-12 16:01] LABS: BASOPHILS % (AUTO) 0.4 %; EOSINOPHILS # (AUTO) 0.1 10^3/uL (0.0-0.7); EOSINOPHILS % (AUTO) 0.9 %; HGB - HEMOGLOBIN 13.4 g/dL (12.0-16.0); LYMPHOCYTES # (AUTO) 1.7 10^3/uL (1.5-3.5); LYMPHOCYTES % (AUTO) 19.8 %; MEAN CORPUSCULAR HEMOGLOBIN 34.4 pg (27.0-31.0); MEAN CORPUSCULAR HGB CONC 34.8 g/dL (32.0-36.0); MEAN PLATELET VOLUME 10.6 fL (7.9-10.8); MONOCYTES # (AUTO) 0.7 10^3/uL (0.0-1.0); MONOCYTES % (AUTO) 8.7 %; NEUTROPHILS % (AUTO) 69.8 %; PLT - PLATELET COUNT 249 10^3/uL (130-450); RED BLOOD COUNT 3.89 10^6/uL (4.20-5.40); RED CELL DISTRIBUTION WIDTH 13.9 % (12.0-15.0); WHITE BLOOD COUNT 8.5 x10^3/uL (4.8-10.8)
[2019-04-12 16:15] LABS: ALBUMIN 3.9 g/dL (3.2-5.5); ALBUMIN/GLOBULIN RATIO 1.1 (1.0-2.2); BILIRUBIN,TOTAL 0.7 mg/dL (0.2-1.0); CALCIUM 9.4 mg/dL (8.5-10.3); CREATININE 0.7 mg/dL (0.4-1.0); TOTAL PROTEIN 7.4 g/dL (6.7-8.2)
[2019-04-12] MEDS ORDERED: ACETAMINOPHEN 325 MG TABLET PO STA (18:22)
--- NOTE | 2019-04-12 18:42 | MRI Report ---
Reason: vertigo, Left hemianopsia Procedure Date: 04/12/2019 Accession Number: [id number] / [id number] Procedure: MRI - Brain W/O CPT Code: FULL RESULT: EXAM: MRI BRAIN WITHOUT CONTRAST. EXAM DATE: 04/12/2019 06:04 PM. CLINICAL HISTORY: Vertigo, left hemianopsia. COMPARISON: None. TECHNIQUE: Multiplanar, multisequence T1-weighted and fluid-sensitive MR sequences of the brain were performed. Sequences optimized for routine evaluation. Other: None. IV Contrast: None. FINDINGS: Restricted diffusion signal with corresponding low ADC map signal is seen involving the cortex of the medial right occipital lobe with extension in the posterior mesial right temporal lobe. There is a punctate focus of cortical restricted diffusion signal in the posterior paramedian right occipital cortex. No abnormal magnetic susceptibility is identified in the brain parenchyma. There is subtle FLAIR hyperintense signal in the region of restricted diffusion signal in the right occipital cortex. No ventriculomegaly is present. An arachnoid cyst is seen overlying the superior left cerebral hemisphere. This is seen centered just posterior to the central sulcus. No abnormal T1 shortening is present in the brain parenchyma. A punctate subcortical FLAIR hyperintensity is seen in the right frontal lobe. This is nonspecific. These are commonly seen secondary to small vessel ischemic change. There is an expected flow void in the distal cervical ICA bilaterally at the skull base. There is an expected flow void in the distal cervical right vertebral artery. The distal left vertebral artery is poorly visualized. No mass is present in either orbit. No mass is seen in either Meckel's cave. An expected flow void is seen in the superior sagittal sinus. Scattered paranasal sinus mucosal thickening is present. Soft tissue fullness along the medial left temporal lobe on the axial T1-weighted sequence image 37 series 702 has no correlate on the coronal images and is felt to reflect imaging of cortex en face. IMPRESSION: 1. There is an acute infarct in a portion of the distribution of the right PATIENT CARE. Based on MRI signal characteristics this is between 6 hours and 1 week old. 2. The flow void of the distal left vertebral artery is poorly visualized. This could be due to this vessel being developmentally small. CTA or MRA of the neck could exclude slow flow or occlusion in the left vertebral artery 3. An arachnoid cyst is seen overlying the superior left cerebral convexity along the posterior aspect of the paracentral lobule. RADIA
[2019-04-12] MEDS ORDERED: IOVERSOL 320 100 ML VIAL IVP ONE ×2 (19:48→20:29)
--- NOTE | 2019-04-12 20:48 | CT Report ---
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 CT SCAN OF THE HEAD WITHOUT AND WITH CONTRAST. EXAM DATE: 04/12/2019 08:17 PM CLINICAL HISTORY: Right GAS SUBSTATION OPERATOR territory stroke. COMPARISON: Prior MRI brain performed earlier today. Accompanying CT angiogram neck. TECHNIQUE: - CT Scan Head: Using a multidetector scanner, axial images were acquired from the foramen magnum to the skull vertex prior to and following contrast administration. - CT Angiogram: Using a multidetector scanner, high-resolution axial images were acquired from the skull base through vertex following rapid infusion of intravenous contrast. Reformats: Multiplanar MIP reformats were reconstructed. Nascet criteria used for stenosis measurement. IV Contrast: OPTI 320 100ML. In accordance with CT protocol optimization, one or more of the following dose reduction techniques were utilized for this exam: automated exposure control, adjustment of mA and/or KV based on patient size, or use of iterative reconstructive technique. Findings: Relevant images are indicated (image number, series number). Unenhanced CT head: Hypodensity right GAS SUBSTATION OPERATOR territory consistent with subacute ischemic stroke. No hemorrhage or mass-effect. Moderate brain atrophy. Moderate compensatory ventricular enlargement. No acute arterial thrombosis of the major arteries. Basal cisterns are patent. Orbital contents negative, patient post bilateral lens surgery. Minimal white matter disease. Paranasal sinuses, mastoid air cells are clear. Skull intact, skull base intact. Postcontrast CT head: No abnormal enhancement of the brain, meninges. CT angiogram head: Left ICA: Widely patent, patent MCA/FRANK. Right ICA: Patent with only minimal atherosclerotic disease. Patent MCA/FRANK. Posterior circulation: Patent distal bilateral vertebral arteries, right side dominant. Patent basilar artery. Patent left GAS SUBSTATION OPERATOR. Right GAS SUBSTATION OPERATOR demonstrates P3 branch vessel occlusion (108, 8), remaining GAS SUBSTATION OPERATOR distal branches appear patent. Patent major draining veins. Impressions: Unenhanced CT head: 1. Right GAS SUBSTATION OPERATOR territory hypodensity consistent with evolving subacute ischemic stroke. No hemorrhage or mass-effect. This was seen previously by MRI performed earlier today. 2. Moderate brain atrophy. 3. Minimal white matter disease. Postcontrast CT head: 1. No abnormal enhancement. CT angiogram head: 1. Posterior circulation: Right GAS SUBSTATION OPERATOR P3 branch vessel occlusion consistent with findings of right GAS SUBSTATION OPERATOR territory subacute ischemic stroke. Remaining posterior distribution is patent. 2. Left ICA: Patent. 3. Right ICA: Patent. 4. Patent major draining veins. RADIA
[2019-04-12] MEDS ORDERED: ATORVASTATIN 10 MG TABLET PO SCH (21:00)
[2019-04-12] MEDS ORDERED: ASPIRIN CHEW 81 MG TABLET PO STA (21:13)
--- NOTE | 2019-04-12 21:18 | CT Report ---
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 COMPARISON: Concurrent CTA head from a prior MRI brain performed earlier today. TECHNIQUE: Routine axial helical imaging was performed from the skull base through the aortic arch. Reconstructions: Routine multiplanar 3D MIP reconstructions. IV Contrast: OPTI 320 100ML. Evaluation of arterial stenosis is based on a NASCET method of measurement. In accordance with CT protocol optimization, one or more of the following dose reduction techniques were utilized for this exam: automated exposure control, adjustment of mA and/or KV based on patient size, or use of iterative reconstructive technique. Findings: Relevant images are indicated (image number, series number). Aortic arch: Patent, normal anatomical variant left vertebral artery originates from the arch. No atherosclerotic disease. Left carotid artery: Widely patent. Right carotid artery: Widely patent. Left vertebral artery: Patent, nondominant vessel. Right vertebral artery: Patent, minimal ostial atherosclerotic disease, prominent tortuosity C2 level (282, 2), prominent fold of the vessel making a right angle turn. No dissection. Limited evaluation lung apices are unremarkable. Soft tissue structures of the neck are unremarkable, thyroid not enlarged. Airway patent. Advanced multilevel cervical spondylosis, no suspicious bony lesions. Impressions: 1. Aortic arch: Patent, left vertebral artery originates from the arch. No atherosclerotic disease. 2. Left carotid artery: Widely patent. 3. Right carotid artery: Widely patent. 4. Left vertebral artery: Patent, nondominant vessel. 5. Right vertebral artery: Patent with minimal atherosclerotic disease, prominent fold of the tortuous vessel C2 level, no dissection. 6. Soft tissue neck negative. 7. Advanced multilevel cervical spondylosis. RADIA
[2019-04-12] MEDS ORDERED: SODIUM CHLORIDE FLUSH 0.9% 10 ML SYRINGE IVP PRN (21:22)
--- NOTE | 2019-04-12 22:05 | HISTORY & PHYSICAL EXAMINATION ---
Chief Complaint - Chief Complaint Chief Complaint: left homonymous hemianopia History of Present Illness - Admitted From Admitted From:: [facility] ED - History Obtained From Records Reviewed: yes History obtained from: patient - History of Present Illness HPI Comment/Other: Patient seen and examined on 04/12/19 at 2300pm Patient is a very pleasant 79 y/o F who presented to the ED with complain of sudden onset of dizziness and not feeling well. Onset was around 12:30pm. She started falling to the ground but then her came to her aid and guided her down to the floor. She had her blood pressure taken while she was down on the floor. The reading was 156/73. At the time she was only seeing 6/3. Her drove her to the ED. When she tried to read the "[place]" sign, she could only see "[place]". She denied weakness in any extremities. No dysarthria or dysphagia. She denied any previous occurrence of these symptoms. 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 It was presented to Neurology at [facility] who determined no intervention was indicated but for optimizing medical management. At the time of my exam her symptoms had completely resolved. History - Past Medical History Cardiovascular: reports: Hypertension, Other (Lower Ext Edema) Respiratory: reports: None Neuro: reports: None Endocrine/Autoimmune: reports: Other (Rheumatoid Arthritis) GI: reports: Ulcerative colitis VISUAL C DEVELOPER: reports: None : reports: None HEENT: reports: Glaucoma Psych: reports: None Musculoskeletal: reports: None Derm: reports: None MRSA Hx?: No - Past Surgical History General: reports: Cholecystectomy, Appendectomy Ortho: reports: Hip replacement /VISUAL C DEVELOPER: reports: Breast reduction Cardiovascular: reports: Other - Family & Social History Family History: Father: CVA/TIA (Age 80) Family History Comment/Other: father: CVA at age 80. mother: HF at age 99 Living arrangement: At home Living Situation: With spouse/s.o. Social History Notes: She drinks wine socially. She quit smoking in 01/31/1974. She denies illicit drug use. She lives with her . They have no children. They are originally from [place]. They have lived on [facility] since [address]. Prior to that they had lived in [place] and [place]. She is independent of activities of daily living. She has undergone bilateral hip replacements but her right hip still gives her some problems. As a result she is a bit unsteady on her feet and uses a cane to get around. - POLST Patient has POLST: No POLST Status: Full Code Meds/Allgy - Home Medications Home Medications: Ambulatory Orders Medication Instructions Recorded Confirmed Furosemide [Lasix] 40 mg PO DAILY 09/28/15 01/16/16 Lisinopril 10 mg PO TID 09/28/15 01/16/16 Metoprolol Tartrate 25 mg PO DAILY 09/28/15 01/16/16 Potassium Chloride 10 meq PO DAILY 09/28/15 01/16/16 Remicade 0 mg IV 09/28/15 Cholecalciferol (Vitamin D3) 12,000 unit PO 04/12/19 [Vitamin D3] Lactobacill 46/B.animal/Inulin 1 each PO 04/12/19 [Probiotic-10 10 Bill Cell Cap] Mecobalamin [B-12] 5,000 mcg PO 04/12/19 Milk Thistle 0 mg PO 04/12/19 Multivitamin [Multivitamins] 1 each PO 04/12/19 [place]-3/Dha/Epa/Fish Oil [Fish Oil 4,800 mg PO DAILY 04/12/19 04/12/19 1,000 mg Softgel] Polyethylene Glycol 3350 [Base 1 gm MC 04/12/19 B,Polyethylene [id number]] Spironolactone 0 mg PO DAILY 04/12/19 04/12/19 Turmeric Root Extract [Turmeric] 1,160 mg PO 04/12/19 Ubidecarenone [Co Q-10] 100 mg PO DAILY 04/12/19 04/12/19 - Allergies Allergies/Adverse Reactions: Allergies Allergy/AdvReac Type Severity Reaction Status Date / Time ciprofloxacin [From Cipro] Allergy Edema Verified 12/21/18 13:11 ciprofloxacin HCl * Allergy Edema Verified 12/21/18 13:11 [From Cipro] metronidazole [From Flagyl] Allergy Emesis Verified 12/21/18 13:11 Review of Systems - Constitutional Constitutional: denies: Fever, Chills, Weakness, Diaphoresis, Night sweats - Eyes Eyes: reports: Vision loss (left homonymous hemianopsia). denies: Pain, Irritation, Amaurosis - Ears, Nose & Throat Ears, Nose & Throat: denies: Ear pain, Vertigo, Nasal pain, Nasal discharge, Sore throat - Cardiovascular Cariovascular: denies: Irregular heart rate, Palpitations, Chest pain, Edema, Lightheadedness, Syncope - Respiratory Respiratory: denies: Cough, Wheezing, SOB at rest, SOB with exertion - Gastrointestinal Gastrointestinal: denies: Abdominal pain, Abdominal distention, Constipation, Diarrhea, Nausea, Vomiting - Genitourinary Genitourinary: denies: Dysuria, Frequency, Urgency, Hematuria, Incontinence, Flank pain - Musculoskeletal Musculoskeletal: reports: Joint pain (right hip). denies: Muscle pain, Back pain, Muscle aches, Stiffness - Integumentary Integumentary: denies: Rash, Pruritis, Lesions - Neurological Neurological: reports: Dizziness. denies: Focal weakness, Headache, Numbness, Abnormal gait, Seizures, Incoordination, Slurred speech - Psychiatric Psychiatric: denies: Depression, Anxiety - Endocrine Endocrine: denies: Polyuria, Polydypsia - Hematologic/Lymphatic Hematologic/Lymphatic: denies: Anemia, Bruising, Petechiae Prior Level of Functionality: She lives with her . They have no children. They are originally from [place]. They have lived on [facility] since [address]. Prior to that they had lived in [place]. She is independent of activities of daily living. She has undergone bilateral hip replacements but her right hip still gives her some problems. As a result she is a bit unsteady on her feet and uses a cane to get around. Exam - Vital Signs Vital Signs: Vital Signs x48h Temp Pulse Resp BP Pulse Ox 04/12/19 20:30 60 15 149/63 H 100 04/12/19 19:30 59 L 12 150/93 H 100 04/12/19 18:28 63 11 L 155/73 H 100 04/12/19 16:06 36.6 C 56 L 14 139/69 H 100 - Physical Exam General Appearance: positive: Alert. negative: No acute distress Eyes Bilateral: positive: PERRL, EOMI, Other (left vision field loss) ENT: positive: ENT inspection nml Neck: positive: Nml inspection, No JVD, Trachea midline Respiratory: positive: Chest non-tender, No respiratory distress, Breath sounds nml. negative: Wheezes, Rales, Rhonchi Cardiovascular: positive: Regular rate & rhythm, No murmur Abdomen: positive: Non-tender, No organomegaly, Nml bowel sounds, No distention. negative: Guarding, Rebound Back: positive: Nml inspection Skin: positive: Color nml, No rash, Warm, Dry Neurologic/Psychiatric: positive: Oriented x3, CN's nml (2-12) (left vision field loss), Motor nml, Sensation nml, Mood/affect nml. negative: Weakness, Facial droop, Slurred/abnml speech Conclusion/Plan - Problem List (1) CVA (cerebral vascular accident) Conclusion/Plan: Symptoms have resolved. Neuro check q 6hrs 2D echo in the am, lipid panel and HgA1c Atorvastatin 20mg po started. Continue [id number] acids. Patient received full dose aspirin in the ED. 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 However, we will allow permissive hypertension through the night. Thus hold metoprolol, lisinopril, lasix and spironolactone (3) Edema Conclusion/Plan: Lower extremity. Patient has been on lasix for at least 30 years. Will hold for now (4) Rheumatoid arthritis Conclusion/Plan: On remicade [id number] (5) Ulcerative colitis Conclusion/Plan: Not having a flare On remicade [id number] - Lab Results Fish Bones: 04/12/19 15:57 04/12/19 15:57 Core Measures - Anticipated LOS I expect patient to be DC'd or transferred within 96 hours.: Yes - DVT/VTE - Prophylaxis VTE/DVT Device ordered at admit?: Yes
[2019-04-13] MEDS: SODIUM CHLORIDE FLUSH 0.9% 10 ML SYRINGE IVP SCH ×2 (00:03→10:35)
[2019-04-13] MEDS: ACETAMINOPHEN 325 MG TABLET PO PRN ×2 (03:27→10:04)
[2019-04-13 05:46] LABS: BASOPHILS % (AUTO) 0.4 %; EOSINOPHILS # (AUTO) 0.2 10^3/uL (0.0-0.7); EOSINOPHILS % (AUTO) 1.8 %; HGB - HEMOGLOBIN 12.2 g/dL (12.0-16.0); LYMPHOCYTES # (AUTO) 2.1 10^3/uL (1.5-3.5); LYMPHOCYTES % (AUTO) 25.5 %; MEAN CORPUSCULAR HEMOGLOBIN 33.9 pg (27.0-31.0); MEAN CORPUSCULAR HGB CONC 34.6 g/dL (32.0-36.0); MEAN CORPUSCULAR VOLUME 98.1 fL (81.0-99.0); MEAN PLATELET VOLUME 10.8 fL (7.9-10.8); MONOCYTES # (AUTO) 0.8 10^3/uL (0.0-1.0); MONOCYTES % (AUTO) 9.4 %; NEUTROPHILS # (AUTO) 5.2 10^3/uL (1.5-6.6); NEUTROPHILS % (AUTO) 62.7 %; PLT - PLATELET COUNT 235 10^3/uL (130-450); RED CELL DISTRIBUTION WIDTH 13.7 % (12.0-15.0); WHITE BLOOD COUNT 8.4 x10^3/uL (4.8-10.8)
[2019-04-13 05:50] LABS: CREATININE 0.6 mg/dL (0.4-1.0)
[2019-04-13 06:04] LABS: CHOL/HDL RATIO 4.7 (<4.4); CHOLESTEROL 257 mg/dL; HDL CHOLESTEROL 55 mg/dL; LDL CHOLESTEROL,CALCULATED 179 mg/dL; LDL/HDL RATIO 3.3 (<4.4); VLDL CHOLESTEROL 23 mg/dL
[2019-04-13 06:09] LABS: HB2 TOTAL 12.1 g/dL; HEMOGLOBIN A1C 0.5 g/dL; HEMOGLOBIN A1C % 5.9 % (4.6-6.2)
[2019-04-13] MEDS ORDERED: ASPIRIN EC 81 MG TABLET PO SCH ×3 (09:00→10:05)
[2019-04-13] MEDS ORDERED: POLYETHYLENE GLYCOL 3350 17 GM PACKET PO SCH (09:00)
[2019-04-13] MEDS ORDERED: [UNRECOGNIZED DRUG - OTHER] PO SCH (09:00)
[2019-04-13] MEDS ORDERED: FISH OIL PO SCH (09:00)
--- NOTE | 2019-04-13 10:10 | DISCHARGE SUMMARY ---
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- new on this admission as per MRI results, continued on ASA, plavix and statin CVA (cerebral vascular accident)- new, stable Loss of part of visual field- resolved, improved Hypertension- chronic, stable Rheumatoid arthritis- chronic, stable Ulcerative colitis- chronic, stable Hypokalemia- resolved, chronic Lower extremity edema- chronic, stable Pulmonary HTN- chronic, stable LV diastolic dysfunction - chronic, stable Chronic pain of both hips- chronic, stable - HPI History of Present Illness: Patient seen and examined on 04/12/19 at 2300pm Patient is a very pleasant 79 y/o F who presented to the ED with complain of sudden onset of dizziness and not feeling well. Onset was around 12:30pm. She started falling to the ground but then her came to her aid and guided her down to the floor. She had her blood pressure taken while she was down on the floor. The reading was 156/73. At the time she was only seeing 6/3. Her hu sband drove her to the ED. When she tried to read the "[place]" sign, she could only see "[place]". She denied weakness in any extremities. No dysarthria or dysphagia. She denied any previous occurrence of these symptoms. 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 It was presented to Neurology at [facility] who determined no intervention was indicated but for optimizing medical management. At the time of my exam her symptoms had completely resolved. 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 The patient presenting symptoms of her vision loss, and left leg weakness improved upon discharge. Her lipid panel was completed and she was started on full dose Atorvastatin of 80mg, which was sent to the pharmacy, in addition she was to continue her [id number] acids from her home medication list. Her echo was essentially normal with an EF 60%, no valvular abnormalities and no shunting by color doppler. She was deemed not a TPA candidate while in the ED. She was g iven a full dose aspirin in the ED, and 81 mg was prescribed upon discharge, in addition to Plavix daily. In order to ensure permissive hypertension, she was given specific instructions regarding her antihypertensives and diuretics in regards to resuming them. A neurology outpatient follow up can be ordered by her PCP if needed at a later date. There were no complications from her chronic illnesses of edema, rheumatoid arthritis, or ulcerative colitis and no other changes to her home med list were made. The patient was in stable condition and was anxious to return home with her . - ALLERGIES Allergies/Adverse Reactions: Allergies Allergy/AdvReac Type Severity Reaction Status Date / Time ciprofloxacin [From Cipro] Allergy Edema Verified 12/21/18 13:11 ciprofloxacin HCl * Allergy Edema Verified 12/21/18 13:11 [From Cipro] metronidazole [From Flagyl] Allergy Emesis Verified 12/21/18 13:11 - MEDICATIONS Home Medications: Ambulatory Orders Medication Instructions Recorded Confirmed Furosemide [Lasix] 40 mg PO DAILY 09/28/15 04/13/19 Lisinopril 10 mg PO QPM 09/28/15 04/13/19 Potassium Chloride 10 meq PO DAILY 09/28/15 04/13/19 Remicade 500 mg IV Q56D 09/28/15 04/13/19 Lactobacill 46/B.animal/Inulin 1 cap PO BID 04/12/19 04/13/19 [Probiotic-10 10 Bill Cell Cap] Mecobalamin [B-12] 5,000 mcg PO DAILY 04/12/19 04/13/19 Milk Thistle 1 cap PO DAILY 04/12/19 04/13/19 Multivitamin [Multivitamins] 1 tab PO DAILY 04/12/19 04/13/19 [place]-3/Dha/Epa/Fish Oil [Fish Oil 1 cap PO DAILY 04/12/19 04/13/19 1,000 mg Softgel] Spironolactone 25 mg PO DAILY 04/12/19 04/13/19 Turmeric Root Extract [Turmeric] 1 cap PO DAILY 04/12/19 04/13/19 Ubidecarenone [Co Q-10] 100 mg PO DAILY 04/12/19 04/13/19 Aspirin [Aspirin EC] 81 mg PO DAILY #30 tablet. 04/13/19 Atorvastatin Calcium [Lipitor] 80 mg PO DAILY PM #30 tablet 04/13/19 Cholecalciferol (Vitamin D3) 12,000 units PO DAILY 04/13/19 04/13/19 [Vitamin D3] Clopidogrel [Plavix] 75 mg PO DAILY #30 tablet 04/13/19 Lisinopril 20 mg PO DAILY 04/13/19 04/13/19 Metoprolol Succinate 25 mg PO DAILY 04/13/19 04/13/19 - PHYSICAL EXAM AT DISCHARGE General Appearance: positive: No acute distress, Alert Eyes Bilateral: positive: PERRL ENT: positive: Pharynx nml, No signs of dehydration Neck: positive: Thyroid nml, No JVD, Trachea midline Respiratory: positive: Chest non-tender, No respiratory distress, Breath sounds nml Cardiovascular: positive: Regular rate & rhythm, No gallop, Systolic murmur, Decreased pulse(s) Peripheral Pulses: positive: 1+ Abdomen: positive: Non-tender, Nml bowel sounds, Hepatomegaly Back: positive: Nml inspection Skin: positive: Color nml, No rash, Warm, Dry Extremities: positive: Non-tender, Pedal edema (chronic, dependent, non- pitting), Joint swelling Neurologic/Psychiatric: positive: Oriented x3, CN's nml (2-12), Motor nml, Sens ation nml, Mood/affect nml, Weakness Reflexes: Bicep (R): 3+, Bicep (L): 3+, Ankle (R): 3+, Ankle (L): 3+ - LABS Result Diagrams: 04/13/19 05:25 04/13/19 05:25 - DIAGNOSTIC IMAGING Diagnostic Imaging Results: Final report reviewed Diagnostic Imaging Results Comments: EXAM: MRI BRAIN WITHOUT CONTRAST EXAM DATE: 04/12/2019 06:04 PM. IMPRESSION: 1. There is an acute infarct in a portion of the distribution of the right DRYING UNIT FELTING MACHINE OPERATOR. Based on MRI signal characteristics this is between 6 hours and 1 week old. 2. The flow void of the distal left vertebral artery is poorly visualized. This could be due to this vessel being developmentally small. CTA or MRA of the neck could exclude slow flow or occlusion in the left vertebral artery 3. An arachnoid cyst is seen overlying the superior left cerebral convexity along the posterior aspect of the paracentral lobule. EXAM: CT ANGIOGRAM NECK EXAM DATE: 04/12/2019 08:17 PM. Impressions: 1. Aortic arch: Patent, left vertebral artery originates from the arch. No atherosclerotic disease. 2. Left carotid artery: Widely patent. 3. Right carotid artery: Widely patent. 4. Left vertebral artery: Patent, nondomina nt vessel. 5. Right vertebral artery: Patent with minimal atherosclerotic disease, prominent fold of the tortuous vessel C2 level, no dissection. 6. Soft tissue neck negative. 7. Advanced multilevel cervical spondylosis. EXAM: CT ANGIOGRAM HEAD. CT SCAN OF THE HEAD WITHOUT AND WITH CONTRAST EXAM DATE: 04/12/2019 08:17 PM Impressions: Unenhanced CT head: 1. Right DRYING UNIT FELTING MACHINE OPERATOR territory hypodensity consistent with evolving subacute ischemic stroke. No hemorrhage or mass-effect. This was seen previously by MRI performed earlier today. 2. Moderate brain atrophy. 3. Minimal white matter di sease. Postcontrast CT head: 1. No abnormal enhancement. CT angiogram head: 1. Posterior circulation: Right DRYING UNIT FELTING MACHINE OPERATOR P3 branch vessel occlusion consistent with findings of right DRYING UNIT FELTING MACHINE OPERATOR territory subacute ischemic stroke. Remaining posterior distribution is patent. 2. Left ICA: Patent. 3. Right ICA: Patent. 4. Patent major draining veins. - FOLLOW UP Follow Up: Disposition: Home Prescriptions: Aspirin [Aspirin EC] 81 mg PO DAILY #30 tablet., Atorvastatin Calcium [Lipitor] 80 mg PO DAILY PM #30 tablet, Clopidogrel [Plavix] 75 mg PO DAILY #30 tablet Health Concerns: Acute stroke, Hyperlipidemia (elevated cholesterol), Vision changes, Hypertension (high blood pressure) Plan of Treatment: You have suffered a right posterior cerebral artery stroke. You may have trouble with recognizing visual neglect, familiar faces (face blindness), disorientation to place, and inability to recall routes or to read or visualize the location of places on maps are also a common deficit. Your heart echocardiogram shows an overall good functioning heart, a copy of this report and my discharge summary will be forwarded to Dr. Camacho. Physical therapy evaluated you and did not recommend rehab, but would like to encourage you to use a walker to prevent falls. Your cholesterol labs were elevated and you should take a lipid lower medication from now on Care Goals: Prevent further strokes, Continue on daily baby aspirin, Plavix, Prevent falls, Prevent hospital stays or acute illnesses Assessment: You are medically stable for discharge and may return home with your , Take all of your medications as prescribed, See your specialists as scheduled, See your Primary care provider within one week, let them know it is for a hospitalization follow up Additional Instructions or Follow Up instructions: HOLD all blood pressure medications: If you find that your systolic (the top number) blood pressure is greater than 185, please resume your lisinopril. You may resume your diuretics (spironolactone/lasix)/potassium as early as tomorrow, depending on your swelling, otherwise resume on ThursdayApril 16, 2019. If all goes well, please resume lisinopril, metoprolol, spironolactone, lasix, and potassium on Tuesday April 16, 2019. - TIME SPENT Time Spent in Discharge (Minutes): 55
--- NOTE | 2019-04-13 10:16 | Discharge Plan ---
Discharge Plan Problem Reviewed?: Yes Disposition: Home, Self Care Condition: Good Prescriptions: Aspirin [Aspirin EC] 81 mg PO DAILY #30 tablet. Atorvastatin Calcium [Lipitor] 80 mg PO DAILY PM #30 tablet Clopidogrel [Plavix] 75 mg PO DAILY #30 tablet Diet: Regular Activity Restrictions: Activity as Tolerated Shower Restrictions: No Assistance Devices: Walker Weight Bearing: Full Weight Health Concerns: Acute stroke Hyperlipidemia (elevated cholesterol) Vision changes Hypertension (high blood pressure) Plan of Treatment: You have suffered a right posterior cerebral artery stroke. You may have trouble with recognizing visual neglect, familiar faces (face blindness), disorientation to place, and inability to recall routes or to read or visualize the location of places on maps are also a common deficit. Your heart echocardiogram shows an overall good functioning heart, a copy of this report and my discharge summary will be forwarded to Dr. Camacho Physical therapy evaluated you and did not recommend rehab, but would like to encourage you to use a walker to prevent falls Your cholesterol labs were elevated and you should take a lipid lower medication from now on Care Goals: Prevent further strokes Continue on daily baby aspirin, Plavix Prevent falls Prevent hospital stays or acute illnesses Assessment: You are medically stable for discharge and may return home with your Take all of your medications as prescribed See your specialists as scheduled See your Primary care provider within one week, let them know it is for a hospitalization follow up Additional Instructions or Follow Up instructions: HOLD all blood pressure medications: If you find that your systolic (the top number) blood pressure is greater than 185, please resume your lisinopril. You may resume your diuretics (spironolactone/lasix)/potassium as early as tomorrow, depending on your swelling, otherwise resume on ThursdayApril 16, 2019. If all goes well, please resume lisinopril, metoprolol, spironolactone, lasix, and potassium on Tuesday April 16, 2019. Please call me directly between 0700 AM to 7:30PM for the rest of this week. I carry a [employer] cell phone to be easily reached @ [phone] No Smoking: If you smoke, Please STOP! Call for help. Follow-up with: Junie uD PA-C [Primary Care Provider] -
[2019-04-13] MEDS ORDERED: OMEGA-3 ACID ETHYL ESTERS 1 GM CAPSULE PO SCH (12:00)
[2019-04-13 14:11] VITALS: BP 131/66
[2019-04-13] MEDS ORDERED: ATORVASTATIN 40 MG TABLET PO SCH (21:00)
[2019-04-13] MEDS ORDERED: [UNRECOGNIZED DRUG - OTHER] PO SCH (21:00)
[2019-04-13] MEDS ORDERED: LISINOPRIL 5 MG TABLET PO SCH (21:00)
[2019-04-14] MEDS ORDERED: FUROSEMIDE 40 MG TABLET PO SCH (09:00)
== END 2019-04-13 14:25 | disposition home or self-care (01) ==
LOC: ED 13:43 → MS2 21:23
PROVIDERS: ADMIT Internal Medicine; ATTEND Nurse Practitioner
DX: I63.431 Cerebral infarction due to embolism of right posterior cerebral artery (principal); H53.462 Homonymous bilateral field defects, left side; G83.14 Monoplegia of lower limb affecting left nondominant side; M06.9 Rheumatoid arthritis, unspecified; K51.90 Ulcerative colitis, unspecified, without complications; E87.6 Hypokalemia; R60.0 Localized edema; I27.20 Pulmonary hypertension, unspecified; I51.9 Heart disease, unspecified; E78.5 Hyperlipidemia, unspecified; M25.552 Pain in left hip; M25.551 Pain in right hip; G89.29 Other chronic pain; Z96.643 Presence of artificial hip joint, bilateral; I51.7 Cardiomegaly; R26.81 Unsteadiness on feet; Z87.891 Personal history of nicotine dependence
CPT/HCPCS: 36415; 70496; 70498; 70551; 80048; 80053; 80061; 83036; 83690; 85025; 93005; 93306; 97161; 97165; 99284; 99285; A9270; G0378; Q9967; 83721

== ENCOUNTER 2019-05-10 13:59 | Outpatient (CLI) | payer MEDICARE, OTHER ==
--- NOTE | 2019-05-10 15:51 | Ultrasound Report ---
Reason: ABNORMAL MAMMO RT BREAST Procedure Date: 05/10/2019 Accession Number: [id number] / [id number] Procedure: US - Breast Unilateral Limited CPT Code: FULL RESULT: EXAM: Diagnostic Dig RT, Breast Unilateral Limited DATE: 05/10/2019 2:54 PM CLINICAL HISTORY: Short interval follow-up for right breast finding. Represent cysts. No reported personal history of breast cancer. Family history breast cancer in maternal grandmother at age 75. Personal history of reduction mammoplasty. TECHNIQUE: (R) - Right CC, ML and MLO views were obtained. Real-time right breast ultrasound is performed. COMPARISON: 11/25/2018 through 01/06/2013 PARENCHYMAL PATTERN: (A) - The breasts demonstrate scattered fibroglandular densities bilaterally. FINDINGS: Right breast: There are stable reduction mammoplasty changes. Long-term stable retraction of the right nipple. There is a 7 mm lobular asymmetry in the 6:00 breast 6 cm from the nipple representing finding under surveillance. Finding is unchanged compared to radiographs dating back to 08/25/2016. There are no suspicious masses, calcifications, or areas of nonoperative distortion. Targeted ultrasound at 6:00 3 cm from the nipple demonstrates stable 7 mm clustered microcysts corresponding to the mammographic finding. There is a stable adjacent simple cyst measuring 4 mm. IMPRESSION: Benign findings. BI-RADS category 2. Simple cyst and stable clustered microcysts corresponding to mammographically stable asymmetry in the 6:00 right breast. RECOMMENDATION: (ANNUAL) - Recommend routine annual screening mammography. BI-RADS CATEGORY: (2) - Benign Findings. STANDARD QUALIFYING STATEMENTS: 1. This examination was not reviewed with the aid of Computer-Aided Detection (CAD). 2. A negative or benign imaging report should not preclude biopsy if clinically suspicious findings are present. 3. Dense breasts may obscure an underlying neoplasm. 4. This examination was reviewed with the aid of 3D breast imaging (tomosynthesis).
== END 2019-05-10 14:00 | disposition home or self-care (01) ==
LOC: DI 13:59
PROVIDERS: ATTEND Physician Assistant Medical
DX: N60.11 Diffuse cystic mastopathy of right breast (principal); Z80.3 Family history of malignant neoplasm of breast
CPT/HCPCS: 76642

== ENCOUNTER 2020-02-20 07:52 | Outpatient (CLI) | payer MEDICARE, OTHER ==
[2020-02-20 08:23] LABS: BASOPHILS % (AUTO) 0.6 %; EOSINOPHILS # (AUTO) 0.1 10^3/uL (0.0-0.7); EOSINOPHILS % (AUTO) 1.7 %; HGB - HEMOGLOBIN 12.2 g/dL (12.0-16.0); LYMPHOCYTES # (AUTO) 1.8 10^3/uL (1.5-3.5); LYMPHOCYTES % (AUTO) 27.7 %; MEAN CORPUSCULAR HEMOGLOBIN 33.9 pg (27.0-31.0); MEAN CORPUSCULAR HGB CONC 33.4 g/dL (32.0-36.0); MEAN CORPUSCULAR VOLUME 101.4 fL (81.0-99.0); MEAN PLATELET VOLUME 11.2 fL (7.9-10.8); MONOCYTES # (AUTO) 0.6 10^3/uL (0.0-1.0); NEUTROPHILS % (AUTO) 60.8 %; PLT - PLATELET COUNT 236 10^3/uL (130-450); RED CELL DISTRIBUTION WIDTH 13.9 % (12.0-15.0); WHITE BLOOD COUNT 6.6 x10^3/uL (4.8-10.8)
[2020-02-20 08:47] LABS: % IRON SATURATION 23 % (20-50); ALBUMIN 3.8 g/dL (3.2-5.5); ALBUMIN/GLOBULIN RATIO 1.3 (1.0-2.2); ALKALINE PHOSPHATASE 59 IU/L (42-121); ALT ALANINE AMINOTRANSFERASE 15 IU/L (10-60); AST ASPARTATE AMINOTRANSFERASE 25 IU/L (10-42); BILIRUBIN,TOTAL 0.9 mg/dL (0.2-1.0); BUN - BLOOD UREA NITROGEN 28 mg/dL (6-20); CALCIUM 9.1 mg/dL (8.5-10.3); CARBON DIOXIDE - CO2 22 mmol/L (21-32); CHLORIDE 102 mmol/L (101-111); CREATININE 0.8 mg/dL (0.4-1.0); CRP HIGH SENSITIVITY 0.8 mg/L; GLUCOSE 128 mg/dL (70-100); IRON 79 ug/dL (28-170); SODIUM 136 mmol/L (135-145); TOTAL IRON BINDING CAPACITY 344 ug/dL (250-450); TOTAL PROTEIN 6.8 g/dL (6.7-8.2); TRANSFERRIN 246 mg/dL (192-382)
[2020-02-20 13:13] LABS: CHOL/HDL RATIO 2.5 (<4.4); CHOLESTEROL 159 mg/dL; HDL CHOLESTEROL 64 mg/dL; LDL CHOLESTEROL,CALCULATED 74 mg/dL; LDL/HDL RATIO 1.2 (<4.4); VLDL CHOLESTEROL 21 mg/dL
== END 2020-02-20 07:53 | disposition home or self-care (01) ==
LOC: LAB 07:52
PROVIDERS: ATTEND Internal Medicine Gastroenterology
DX: K51.50 Left sided colitis without complications (principal); K59.00 Constipation, unspecified; E78.5 Hyperlipidemia, unspecified
CPT/HCPCS: 36415; 80053; 80061; 82306; 82607; 82728; 83540; 83721; 84466; 85025; 85651; 86141

== ENCOUNTER 2020-04-02 12:53 | Outpatient (CLI) | payer MEDICARE, OTHER ==
--- NOTE | 2020-04-02 17:14 | DEXA Report ---
PROCEDURE: Dexa Spine and/or Hip INDICATIONS: OSTEOPOROSIS TECHNIQUE: Dual energy x-ray absorptiometry (DXA) was performed on a [employer] System. Regions measur ed are the AP Spine, femoral neck, and if needed forearm. COMPARISON: None. FINDINGS: Lumbar Spine: Bone Mineral Density 1.177 g/cm/cm,T score 0, normal Left forearm: Bone Mineral Density 0.32 g/cm/cm, T score -1.8, moderate osteopenia (T score greater or equal to -1.0: NORMAL) (T score from -1.1 to -2.4: OSTEOPENIA) (T score less than or equal to -2.5 to: OSTEOPOROSIS) Impression: Moderate osteopenia within the forearm as above. Patients with diagnosis of osteoporosis or osteopenia should have regular bone mineral density assess ment. For those eligible for Medicare, routine testing is allowed once every 2 years. Testing frequ ency can be increased for patients who have rapidly progressing disease or for those who are receivin g medical therapy to restore bone mass. Reviewed by: Taylor Wade MD on 04/02/2020 5:13 PM PDT Approved by: Taylor Wade MD on 04/02/2020 5:13 PM PDT Station ID: [id number]
== END 2020-04-02 12:54 | disposition home or self-care (01) ==
LOC: DI 12:53
PROVIDERS: ATTEND Internal Medicine
DX: M85.832 Other specified disorders of bone density and structure, left forearm (principal); N95.8 Other specified menopausal and perimenopausal disorders
CPT/HCPCS: 77080; 77081

== ENCOUNTER 2020-04-06 14:03 | Outpatient (CLI) | payer MEDICARE, OTHER | END 2020-04-06 14:04 | disposition home or self-care (01) | LOC: COV 14:03 | PROVIDERS: ATTEND Internal Medicine Gastroenterology | DX: Z20.828 Contact with and (suspected) exposure to other viral communicable diseases (principal) ==

== ENCOUNTER 2020-11-06 11:46 | Emergency (ER) | payer MEDICARE, OTHER ==
--- NOTE | 2020-11-06 12:17 | XRAY Report ---
PROCEDURE: Chest 1 View X-Ray INDICATIONS: Chest Pain TECHNIQUE: One view of the chest was acquired. COMPARISON: 10/08/2018 FINDINGS: Surgical changes and devices: A catheter is seen projecting in epigastric region under left hemidiaph ragm suggests clinical correlation.. Lungs and pleura: No pleural effusions or pneumothorax. Lungs are clear. Mediastinum: Borders thoracic aorta is again seen. Heart size is enlarged. Bones and chest wall: No suspicious bony lesions. Overlying soft tissues appear unremarkable. IMPRESSION: No acute cardiopulmonary pathology. Reviewed by: Jan Garcia MD on 11/06/2020 12:16 PM PDT Approved by: Jan Garcia MD on 11/06/2020 12:16 PM PDT Station ID: [id number]
[2020-11-06 12:46] LABS: BASOPHILS % (AUTO) 0.3 %; EOSINOPHILS # (AUTO) 0.1 10^3/uL (0.0-0.7); EOSINOPHILS % (AUTO) 0.8 %; HCT - HEMATOCRIT 37.8 % (37.0-47.0); LYMPHOCYTES # (AUTO) 2.1 10^3/uL (1.5-3.5); MEAN CORPUSCULAR HEMOGLOBIN 33.9 pg (27.0-31.0); MEAN CORPUSCULAR HGB CONC 34.4 g/dL (32.0-36.0); MEAN CORPUSCULAR VOLUME 98.7 fL (81.0-99.0); MEAN PLATELET VOLUME 11.2 fL (7.9-10.8); MONOCYTES # (AUTO) 0.7 10^3/uL (0.0-1.0); MONOCYTES % (AUTO) 8.1 %; NEUTROPHILS # (AUTO) 6.2 10^3/uL (1.5-6.6); NEUTROPHILS % (AUTO) 67.6 %; PLT - PLATELET COUNT 278 10^3/uL (130-450); RED BLOOD COUNT 3.83 10^6/uL (4.20-5.40); RED CELL DISTRIBUTION WIDTH 13.3 % (12.0-15.0); WHITE BLOOD COUNT 9.1 x10^3/uL (4.8-10.8)
[2020-11-06 13:04] LABS: ALBUMIN 4.1 g/dL (3.2-5.5); ALBUMIN/GLOBULIN RATIO 1.1 (1.0-2.2); CALCIUM 9.2 mg/dL (8.5-10.3); CREATININE 0.8 mg/dL (0.4-1.0); POTASSIUM 4.3 mmol/L (3.5-5.0); TOTAL PROTEIN 7.7 g/dL (6.7-8.2)
--- NOTE | 2020-11-06 15:28 | ED Physician Documentation ---
PD HPI CHEST PAIN - Stated complaint Stated Complaint: CHEST PX - Chief complaint Chief Complaint: Cardiac - History obtained from History obtained from: Patient - Additional information Additional information: Patient comes emergency department chief complaint of intermittent episodes of chest pain over the last 24 hours. Patient states the episodes occur randomly without any identifiable trigger. She denies any specific relation to exertion. There is no radiation and there are no associated symptoms. She states she has only chest pain and no shortness of breath, nausea, or diaphoresis. The patient has no known history of cardiac disease. She states she went through a period of few years ago of the same sort of symptoms and had an extensive cardiac work- up which was ultimately negative. She states nobody was ever sure why she had had the chest pain. The patient states that she has had a CVA previously from which she is largely covered, and that she takes a beta-anjelica and Plavix since having this. The patient is not a smoker and not a diabetic. She denies any history of SD in her family. The patient has a longstanding history of edema in her lower extremities but states this is no worse than at any time before. Patient states she is not currently having any chest pain. Review of Systems Ten Systems: 10 systems reviewed and negative Constitutional: reports: Reviewed and negative Eyes: reports: Reviewed and negative Ears: reports: Reviewed and negative Nose: reports: Reviewed and negative Throat: reports: Reviewed and negative Cardiac: reports: Chest pain / pressure Respiratory: reports: Reviewed and negative GI: reports: Reviewed and negative : reports: Reviewed and negative Skin: reports: Reviewed and negative Musculoskeletal: reports: Reviewed and negative Neurologic: reports: Reviewed and negative Psychiatric: reports: Reviewed and negative Endocrine: reports: Reviewed and negative Immunocompromised: reports: Reviewed and negative PD PAST MEDICAL HISTORY - Past Medical History Cardiovascular: Hypertension, Other Respiratory: None Neuro: None Endocrine/Autoimmune: Other GI: Ulcerative colitis 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 HEENT: Glaucoma Psych: None Musculoskeletal: None, Rheumatoid arthritis Derm: None - Past Surgical History Past Surgical History: Yes General: Cholecystectomy, Appendectomy Ortho: Hip replacement /SODA FOUNTAIN CLERK: Breast reduction Cardiovascular: Other - Present Medications Home Medications: Ambulatory Orders Medication Instructions Recorded Confirmed Furosemide [Lasix] 40 mg PO DAILY 09/28/15 04/13/19 Potassium Chloride 10 meq PO DAILY 09/28/15 04/13/19 Remicade 500 mg IV Q56D 09/28/15 04/13/19 lisinopriL [Lisinopril] 10 mg PO QPM 09/28/15 04/13/19 Lactobacill 46/B.animal/Inulin 1 cap PO BID 04/12/19 04/13/19 [Probiotic-10 10 Bill Cell Cap] Mecobalamin [B-12] 5,000 mcg PO DAILY 04/12/19 04/13/19 Milk Thistle 1 cap PO DAILY 04/12/19 04/13/19 Multivitamin [Multivitamins] 1 tab PO DAILY 04/12/19 04/13/19 [place]-3/Dha/Epa/Fish Oil [Fish Oil 1 cap PO DAILY 04/12/19 04/13/19 1,000 mg Softgel] Spironolactone 25 mg PO DAILY 04/12/19 04/13/19 Turmeric Root Extract [Turmeric] 1 cap PO DAILY 04/12/19 04/13/19 Ubidecarenone [Co Q-10] 100 mg PO DAILY 04/12/19 04/13/19 Aspirin [Aspirin EC] 81 mg PO DAILY #30 tablet. 04/13/19 Atorvastatin Calcium [Lipitor] 80 mg PO DAILY PM #30 tablet 04/13/19 Cholecalciferol (Vitamin D3) 12,000 units PO DAILY 04/13/19 04/13/19 [Vitamin D3] Clopidogrel [Plavix] 75 mg PO DAILY #30 tablet 04/13/19 Metoprolol Succinate 25 mg PO DAILY 04/13/19 04/13/19 lisinopriL [Lisinopril] 20 mg PO DAILY 04/13/19 04/13/19 Nitroglycerin [Nitrostat] 0.4 mg SL Q5MIN PRN #30 tablet 11/06/20 - Allergies Allergies/Adverse Reactions: Allergies Allergy/AdvReac Type Severity Reaction Status Date / Time ciprofloxacin [From Cipro] Allergy Edema Verified 11/06/20 11:51 ciprofloxacin HCl * Allergy Edema Verified 11/06/20 11:51 [From Cipro] metronidazole [From Flagyl] Allergy Emesis Verified 11/06/20 11:51 - Social History Does the pt smoke?: No Smoking Status: Never smoker Does the pt drink ETOH?: Yes Does the pt have substance abuse?: No - Immunizations Immunizations are current?: No - POLST Patient has POLST: No POLST Status: Full Code PD ED PE NORMAL - Vitals Vital signs reviewed: Yes - General General: Alert and oriented X 3, No acute distress, Well developed/nourished - HEENT HEENT: Atraumatic, PERRL, EOMI, Moist mucous membranes - Neck Neck: Supple, no meningeal sign - Cardiac Cardiac: RRR, No murmur, Strong equal pulses - Respiratory Respiratory: No respiratory distress, Clear bilaterally - Abdomen Abdomen: Soft, Non tender, Non distended - Derm Derm: Normal color, Warm and dry, No rash - Extremities Extremities: No deformity, No calf tenderness / cord, Other (2+ pitting edema bilateral lower extremities) - Neuro Neuro: Alert and oriented X 3, 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, Normal speech, Other (Otherwise grossly intact.) - Psych Psych: Normal mood, Normal affect Results - Vitals Vitals: Vital Signs - 24 hr 11/06/20 11/06/20 11/06/20 11:51 13:55 15:00 Temperature 36.9 C Heart Rate 91 74 81 Respiratory 18 12 20 Rate Blood Pressure 144/86 H 158/87 H 129/63 O2 Saturation 100 100 96 11/06/20 15:35 Temperature 36.7 C Heart Rate 79 Respiratory 16 Rate Blood Pressure 125/65 O2 Saturation 100 Oxygen O2 Source Room air - EKG (time done) 1152 Rate: Rate (enter#) (89) Rhythm: NSR [place]: Normal Intervals: Normal [place] QRS: Normal Ischemia: Normal ST segments, Non specific changes Compare to prior EKG: Old EKG unavailable Computer interpretation: Agree with computer - Labs Labs: Laboratory Tests 11/06/20 11/06/20 11/06/20 12:40 12:40 12:40 WBC 9.1 RBC 3.83 L Hgb 13.0 Hct 37.8 MCV 98.7 MCH 33.9 H MCHC 34.4 RDW 13.3 Plt Count 278 MPV 11.2 H Neut # (Auto) 6.2 Lymph # (Auto) 2.1 Boyd # (Auto) 0.7 Eos # (Auto) 0.1 Baso # (Auto) 0.0 Absolute Nucleated RBC 0.00 Nucleated RBC % 0.0 Sodium 135 Potassium 4.3 Chloride 101 Carbon Dioxide 23 Anion Gap 11.0 BUN 28 H Creatinine 0.8 Estimated GFR (MDRD) 69 L Glucose 120 H Calcium 9.2 Total Bilirubin 1.0 AST 34 ALT 27 Alkaline Phosphatase 59 Troponin I High Sens 9.3 Total Protein 7.7 Albumin 4.1 Globulin 3.6 Albumin/Globulin Ratio 1.1 Lipase 29 11/06/20 14:35 WBC RBC Hgb Hct MCV MCH MCHC RDW Plt Count MPV Neut # (Auto) Lymph # (Auto) Boyd # (Auto) Eos # (Auto) Baso # (Auto) Absolute Nucleated RBC Nucleated RBC % Sodium Potassium Chloride Carbon Dioxide Anion Gap BUN Creatinine Estimated GFR (MDRD) Glucose Calcium Total Bilirubin AST ALT Alkaline Phosphatase Troponin I High Sens 9.1 Total Protein Albumin Globulin Albumin/Globulin Ratio Lipase - Rads (name of study) CXR Radiology: Final report received, EMP read indepedently, See rad report PD MEDICAL DECISION MAKING - ED course Complexity details: reviewed old records, reviewed results, re-evaluated patient, considered differential, d/w patient ED course: The patient was worked up with labs, including repeat troponin, all of which were unremarkable. Her EKG was also unremarkable. I discussed The patient's case with Dr. Orlin Loja, who is her primary care physician. The patient is already on Plavix and metoprolol which are preventative for coronary artery disease. Additionally, she has no evidence of having had A myocardial infarction today. I discussed with Dr. Loja that perhaps we could put the patient on sublingual nitroglycerin and have her follow-up in an expedited fashion with him to discuss getting scheduled for a stress test. Dr. Loja was very agreeable to this and suggested that the patient call his office this afternoon. I did relay this to the patient who was completely chest pain-free and had been throughout her entire stay in the emergency department. Patient was agreeable to the plan. We have discussed home management of the symptoms, as well as the usual indications for return. Departure - Departure Disposition: 01 Home, Self Care Clinical Impression: Chest pain Qualifiers: Chest pain type: unspecified Qualified Code(s): R07.9 - Chest pain, unspecified Condition: Stable Instructions: Nitroglycerin Fast Act Dc, ED Chest Pain Atypical Unkn Cause Follow-Up: Orlin Loja MD [Primary Care Provider] - Prescriptions: Nitroglycerin [Nitrostat] 0.4 mg SL Q5MIN PRN #30 tablet PRN Reason: Chest Pain Comments: Your labs and EKG look great. We have done 2 sets of cardiac labs, both of which were normal. I discussed your case with Dr. Loja, who is happy to follow up with you in an expedited manner to discuss potentially having a stress test done. Please call his office this afternoon to set up your follow-up appointment. You have been prescribed nitroglycerin, which can be taken on the tongue if you have an episode of chest pain. You may use this as needed according to the directions given by the pharmacy. If you develop severe chest pain that does not go away, and is associated with shortness of breath, nausea, or facial sweating, please return to the emergency department immediately. Discharge Date/Time: 11/06/20 15:38
[2020-11-06 15:36] VITALS: BP 125/65
--- OUTSIDE RECORDS SUMMARY | 2020-11-07 03:22 | EXTERNAL MEDICAL SUMMARY RPT | Continuity of Care Document ---
:1940 Demographics Phone Unavailable Preferred Language Unknown Marital Status Unknown Catholic Affiliation Unknown Race Unknown Ethnic Group Unknown Author Organization [facility] Address [address] [place] [address] Phone Social History date description facility [phone]
--- OUTSIDE RECORDS SUMMARY | 2020-11-07 03:23 | EXTERNAL MEDICAL SUMMARY RPT | Continuity of Care Document ---
:1940 Demographics Phone Unavailable Preferred Language Unknown Marital Status Unknown Confucianism Affiliation Unknown Race Unknown Ethnic Group Unknown Author Organization [facility] Address [address] [phone] Phone Social History date description facility [phone]
== END 2020-11-06 15:38 | disposition home or self-care (01) ==
LOC: ED 11:46
DX: R07.9 Chest pain, unspecified (principal); I10 Essential (primary) hypertension; Z86.73 Personal history of transient ischemic attack (TIA), and cerebral infarction without residual deficits; Z79.02 Long term (current) use of antithrombotics/antiplatelets
CPT/HCPCS: 36415; 80053; 83690; 84484; 85025; 93005; 99284

== ENCOUNTER 2020-11-19 09:53 | Outpatient (CLI) | payer MEDICARE, OTHER ==
--- NOTE | 2020-11-19 15:43 | MRI Report ---
PROCEDURE: Knee RT W/O INDICATIONS: RHEUMATOID ARTHRITIS, R KNEE PAIN TECHNIQUE: Noncontrast sagittal PD fast spin echo and T2 fast spin echo with fat saturation, sagittal 3-D gradie nt sequence with fat saturation; coronal T1 spin echo and PD fast spin echo with fat saturation, and axial PD fast spin echo with fat saturation through the knee. COMPARISON: Plain films dated 01/16/2016 FINDINGS: Image quality: Excellent. Menisci: Medial extrusion of the medial meniscus. Linear and amorphous high signal intensity within t he anterior horn and body of the medial meniscus, demonstrating superior and inferior articular surfa ce extension, indicating complex tearing. Linear horizontally oriented high T2 signal intensity withi n the posterior horn lateral meniscus, demonstrating superior articular surface extension, indicating horizontal tearing. Lateral meniscus is intact. Cruciate ligaments: The anterior and posterior cruciate ligaments appear intact. Medial structures: The medial collateral ligament appears intact, but demonstrates moderate surround ing T2 signal elevation. Visualized portions of the pes anserinus tendons appear normal. No abnormal bursal fluid. Lateral structures: The lateral collateral ligament, long and short heads of the biceps femoris tend on appear intact. The popliteus tendon appears normal. Iliotibial band appears normal. Anterior structures: The quadriceps and patellar tendons appear intact. Patellar alignment is shelley l. No femoral trochlear dysplasia or ventral trochlear prominence. No edema in the infrapatellar fa t pad. Bones and cartilage: No bone marrow contusions or fractures. There is moderate subchondral ill-defin ed T2 signal elevation within the mid weightbearing aspect of the medial femoral condyle. Mild subcho ndral ill-defined T2 signal elevation within the mid/anterior aspect of the medial tibial plateau. Mi ld tricompartmental periarticular osteophyte formation. Severe articular cartilage loss overlies the weightbearing aspects of the medial femoral condyle and medial tibial plateau. Moderate articular car tilage loss overlies the medial and lateral patellar facets, as well as the medial femoral trochlea. Joint space: There is a moderate knee joint effusion and a trace Flores?s cyst. Normal appearing syn ovial plicae are incidentally noted. IMPRESSION: 1. Tricompartmental osteoarthritis with associated articular cartilage loss. 2. Complex tearing of the medial meniscus. 3. Knee joint effusion and trace Flores's cyst. 4. MCL strain. Reviewed by: Mark Samano MD on 11/19/2020 3:42 PM PDT Approved by: Mark Samano MD on 11/19/2020 3:42 PM PDT Station ID: [id number]
== END 2020-11-19 09:54 | disposition home or self-care (01) ==
LOC: DI 09:53
PROVIDERS: ATTEND Internal Medicine
DX: M17.11 Unilateral primary osteoarthritis, right knee (principal); S83.231A Complex tear of medial meniscus, current injury, right knee, initial encounter; M25.461 Effusion, right knee; S83.411A Sprain of medial collateral ligament of right knee, initial encounter

== ENCOUNTER 2021-03-30 10:36 | Emergency (ER) | payer MEDICARE, OTHER ==
[2021-03-30 10:49] VITALS: BP 165/55
--- NOTE | 2021-03-30 12:48 | ED Physician Documentation ---
PD HPI LOWER EXT INJURY - Stated complaint Stated Complaint: POST OP COMP - Chief complaint Chief Complaint: Ext Problem - History obtained from History obtained from: Patient - Additional information Additional information: She had a partial knee replacement on Thursday, 5 days ago. She developed some bleeding from the medial side of the incision and was instructed to get Xeroform at the pharmacy by her orthopedist nurse. They went to the pharmacy and as it turns out Xeroform is available by prescription only so instead they got DuoDERM which is now stuck to the underlying dressing and she cannot get it off. 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 : None HEENT: Glaucoma Psych: None Musculoskeletal: None, Rheumatoid arthritis Derm: None - Past Surgical History Past Surgical History: Yes General: Cholecystectomy, Appendectomy Ortho: Hip replacement /STONE DRILLER HELPER: Breast reduction Cardiovascular: Other - Present Medications Home Medications: Ambulatory Orders Medication Instructions Recorded Confirmed Furosemide [Lasix] 40 mg PO DAILY 09/28/15 04/13/19 Potassium Chloride 10 meq PO DAILY 09/28/15 04/13/19 Remicade 500 mg IV Q56D 09/28/15 04/13/19 lisinopriL [Lisinopril] 10 mg PO QPM 09/28/15 04/13/19 Lactobacill 46/B.animal/Inulin 1 cap PO BID 04/12/19 04/13/19 [Probiotic-10 10 Bill Cell Cap] Mecobalamin [B-12] 5,000 mcg PO DAILY 04/12/19 04/13/19 Milk Thistle 1 cap PO DAILY 04/12/19 04/13/19 Multivitamin [Multivitamins] 1 tab PO DAILY 04/12/19 04/13/19 [place]-3/Dha/Epa/Fish Oil [Fish Oil 1 cap PO DAILY 04/12/19 04/13/19 1,000 mg Softgel] Spironolactone 25 mg PO DAILY 04/12/19 04/13/19 Turmeric Root Extract [Turmeric] 1 cap PO DAILY 04/12/19 04/13/19 Ubidecarenone [Co Q-10] 100 mg PO DAILY 04/12/19 04/13/19 Aspirin [Aspirin EC] 81 mg PO DAILY #30 tablet. 04/13/19 Atorvastatin Calcium [Lipitor] 80 mg PO DAILY PM #30 tablet 04/13/19 Cholecalciferol (Vitamin D3) 12,000 units PO DAILY 04/13/19 04/13/19 [Vitamin D3] Clopidogrel [Plavix] 75 mg PO DAILY #30 tablet 04/13/19 Metoprolol Succinate 25 mg PO DAILY 04/13/19 04/13/19 lisinopriL [Lisinopril] 20 mg PO DAILY 04/13/19 04/13/19 Nitroglycerin [Nitrostat] 0.4 mg SL Q5MIN PRN #30 tablet 11/06/20 - Allergies Allergies/Adverse Reactions: Allergies Allergy/AdvReac Type Severity Reaction Status Date / Time ciprofloxacin [From Cipro] Allergy Edema Verified 03/30/21 10:49 ciprofloxacin HCl * Allergy Edema Verified 03/30/21 10:49 [From Cipro] metronidazole [From Flagyl] Allergy Emesis Verified 03/30/21 10:49 - Social History Does the pt smoke?: No Smoking Status: Never smoker Does the pt drink ETOH?: Yes Does the pt have substance abuse?: No - Immunizations Immunizations are current?: No - POLST Patient has POLST: No POLST Status: Full Code PD ED PE NORMAL - Vitals Vital signs reviewed: Yes - General General: Alert and oriented X 3, No acute distress - Extremities Extremities: Other (There is a anterior knee incision which is clean and dry with some spots of light venous oozing from the medial side but no signs of infection. There is a DuoDERM over top of a clear surgical dressing which is stuck in place.) - Neuro Neuro: Alert and oriented X 3, Normal speech - Psych Psych: Normal mood, Normal affect Results - Vitals Vitals: Vital Signs - 24 hr 03/30/21 10:46 Temperature 36.7 C Heart Rate 75 Respiratory 16 Rate Blood Pressure 165/55 H O2 Saturation 100 Oxygen O2 Source Room air PD MEDICAL DECISION MAKING - ED course ED course: The duodenum was carefully dissected off of the underlying dressing and then replaced with Xeroform and an ABD pad. Departure - Departure Disposition: 01 Home, Self Care Clinical Impression: Postoperative wound hemorrhage Condition: Good Record reviewed to determine appropriate education?: Yes Comments: Either daily or every other day you can replace the yellowish Xeroform with a new 1 and a pad and a compression stocking. Follow-up with your orthopedist this week as scheduled.
== END 2021-03-30 13:00 | disposition home or self-care (01) ==
LOC: ED 10:36
DX: L76.22 Postprocedural hemorrhage of skin and subcutaneous tissue following other procedure (principal); Y83.8 Other surgical procedures as the cause of abnormal reaction of the patient, or of later complication, without mention of misadventure at the time of the procedure
CPT/HCPCS: 99281

== ENCOUNTER 2021-07-12 10:31 | Outpatient (CLI) | payer MEDICARE, OTHER ==
--- NOTE | 2021-07-15 12:52 | Mammography Report ---
BILATERAL DIGITAL SCREENING MAMMOGRAM 3D/2D: 07/12/2021 CLINICAL: Routine screening. Comparison is made to exams dated: 05/10/2019 ultrasound, 05/10/2019 mammogram, 11/25/2018 ultrasound, 11/25/2018 mammogram, 11/11/2018 mammogram, and 08/25/2017 mammogram - [facility]. Th ere are scattered fibroglandular elements in both breasts. No significant masses, calcifications, or other findings are seen in either breast. There has been no significant interval change. IMPRESSION: NEGATIVE There is no mammographic evidence of malignancy. A 1 year screening mammogram is recommended. This exam was interpreted at Station ID: [id number]. NOTE: For mammograms, a report in lay terms will be sent to the patient. Approximately 15% of breast malignancies will not be visualized mammographically. In the management of a palpable breast mass, a negative mammogram must not discourage biopsy of a clinically suspicious lesion. Electronically Signed By: Hieu freed/tatianna:07/12/2021 13:03:23 ACR BI-RADS Category 1: Negative 3341F PARENCHYMAL PATTERN: (A) - The breast(s) demonstrate(s) scattered fibroglandular densities. BI-RADS CATEGORY: (1) - 1 RECOMMENDATION: (ANNUAL) - Recommend routine annual screening mammography. [id number] 1 year screening LATERALITY: (B)
== END 2021-07-12 10:32 | disposition home or self-care (01) ==
LOC: DI 10:31
PROVIDERS: ATTEND Student in an Organized Health Care Education/Training Program
DX: Z12.31 Encounter for screening mammogram for malignant neoplasm of breast (principal)

== ENCOUNTER 2021-12-04 13:26 | Outpatient (CLI) | payer MEDICARE, OTHER | END 2021-12-04 13:27 | disposition home or self-care (01) | LOC: RT 13:26 | PROVIDERS: ATTEND Internal Medicine | DX: R05.3 Chronic cough (principal); Z87.891 Personal history of nicotine dependence | CPT/HCPCS: 94010; 94729 ==

== ENCOUNTER 2021-12-04 14:46 | Outpatient (CLI) | payer MEDICARE, OTHER ==
--- NOTE | 2021-12-04 15:30 | XRAY Report ---
PROCEDURE: Chest 2 View X-Ray INDICATIONS: CHRONIC COUGH TECHNIQUE: 2 view(s) of the chest. COMPARISON: November 06, 2020 FINDINGS: SUPPORT DEVICES: Gastric lap band. LUNGS/PLEURA: Coarsened interstitial markings. No focal consolidation, pleural effusion or space-occu pying pneumothorax. MEDIASTINUM: Retrocardiac density, suggesting hiatal hernia. Tortuous aorta. The cardiac silhouette i s upper limits of normal. BONES/SOFT TISSUES: No acute abnormality. Eventration of the right diaphragm. IMPRESSION: 1.No acute cardiopulmonary abnormality. Reviewed by: Polo Nicholson MD on 12/04/2021 3:29 PM PDT Approved by: Polo Nicholson MD on 12/04/2021 3:29 PM PDT Station ID: [id number]
== END 2021-12-04 14:47 | disposition home or self-care (01) ==
LOC: DI 14:46
PROVIDERS: ATTEND Internal Medicine
DX: R05.3 Chronic cough (principal); Z87.891 Personal history of nicotine dependence
CPT/HCPCS: 94010; 94729

== ENCOUNTER 2022-02-20 15:11 | Emergency (ER) | payer MEDICARE, OTHER ==
[2022-02-20 15:36] VITALS: BP 152/88
[2022-02-20] MEDS ORDERED: LIDOCAINE 1%-EPI 1:100000 20 ML MDV SUBQ STA (16:59)
[2022-02-20] MEDS ORDERED: TETANUS/DIPHTHERIA/PERTUSSIS 0.5 ML SYRINGE IM ONE (17:09)
--- NOTE | 2022-02-20 17:11 | ED Physician Documentation ---
PD HPI LOWER EXT INJURY - Stated complaint Stated Complaint: R LEG LAC - Chief complaint Chief Complaint: Laceration - History obtained from History obtained from: Patient (This is a michael 81-year-old woman who is not up-to-date on tetanus who scratched her right leg on the dryer door late this morning and has a persistently bleeding wound on the right lateral calf. No other injuries.) Review of Systems Constitutional: reports: Reviewed and negative Eyes: reports: Reviewed and negative Ears: reports: Reviewed and negative Nose: reports: Reviewed and negative PD PAST MEDICAL HISTORY - Past Medical History Cardiovascular: Hypertension, Other Respiratory: None Neuro: None Endocrine/Autoimmune: Other GI: Ulcerative colitis TABLET REPAIR: None : None HEENT: Glaucoma Psych: None Musculoskeletal: None, Rheumatoid arthritis Derm: None - Past Surgical History Past Surgical History: Yes General: Cholecystectomy, Appendectomy Ortho: Hip replacement /TABLET REPAIR: Breast reduction Cardiovascular: Other - Present Medications Home Medications: Ambulatory Orders Medication Instructions Recorded Confirmed Furosemide [Lasix] 40 mg PO DAILY 09/28/15 04/13/19 Potassium Chloride 10 meq PO DAILY 09/28/15 04/13/19 Remicade 500 mg IV Q56D 09/28/15 04/13/19 lisinopriL [Lisinopril] 10 mg PO QPM 09/28/15 04/13/19 Lactobacill 46/B.animal/Inulin 1 cap PO BID 04/12/19 04/13/19 [Probiotic-10 10 Bill Cell Cap] Mecobalamin [B-12] 5,000 mcg PO DAILY 04/12/19 04/13/19 Milk Thistle 1 cap PO DAILY 04/12/19 04/13/19 Multivitamin [Multivitamins] 1 tab PO DAILY 04/12/19 04/13/19 [place]-3/Dha/Epa/Fish Oil [Fish Oil 1 cap PO DAILY 04/12/19 04/13/19 1,000 mg Softgel] Spironolactone 25 mg PO DAILY 04/12/19 04/13/19 Turmeric Root Extract [Turmeric] 1 cap PO DAILY 04/12/19 04/13/19 Ubidecarenone [Co Q-10] 100 mg PO DAILY 04/12/19 04/13/19 Aspirin [Aspirin EC] 81 mg PO DAILY #30 tablet. 04/13/19 Atorvastatin Calcium [Lipitor] 80 mg PO DAILY PM #30 tablet 04/13/19 Cholecalciferol (Vitamin D3) 12,000 units PO DAILY 04/13/19 04/13/19 [Vitamin D3] Clopidogrel [Plavix] 75 mg PO DAILY #30 tablet 04/13/19 Metoprolol Succinate 25 mg PO DAILY 04/13/19 04/13/19 lisinopriL [Lisinopril] 20 mg PO DAILY 04/13/19 04/13/19 Nitroglycerin [Nitrostat] 0.4 mg SL Q5MIN PRN #30 tablet 11/06/20 - Allergies Allergies/Adverse Reactions: Allergies Allergy/AdvReac Type Severity Reaction Status Date / Time ciprofloxacin [From Cipro] Allergy Edema Verified 02/20/22 15:36 ciprofloxacin HCl * Allergy Edema Verified 02/20/22 15:36 [From Cipro] metronidazole [From Flagyl] Allergy Emesis Verified 02/20/22 15:36 - Social History Does the pt smoke?: No Smoking Status: Never smoker Does the pt drink ETOH?: Yes Does the pt have substance abuse?: No - Immunizations Immunizations are current?: No - POLST Patient has POLST: No POLST Status: Full Code PD ED PE NORMAL - Vitals Vital signs reviewed: Yes - General General: Alert and oriented X 3, No acute distress - Extremities Extremities: Other (There is a skin flap laceration measuring 2 cm and another very shallow laceration measuring 2 cm on the right mid lateral calf) - Neuro Neuro: Alert and oriented X 3, Normal speech Results - Vitals Vitals: Vital Signs - 24 hr 02/20/22 15:34 Temperature 35.5 C L Heart Rate 78 Respiratory 16 Rate Blood Pressure 152/88 H O2 Saturation 97 Oxygen O2 Source Room air Procedures - Laceration (location) RLE Length in cm: 4 Wound type: Flap, Superficial Wound preparation: Irrigated copiously NS Skin layer closure: Dermabond, Steri strips Other: Tetanus booster given Departure - Departure Disposition: 01 Home, Self Care Clinical Impression: Laceration of right leg excluding thigh Qualifiers: Encounter type: initial encounter Qualified Code(s): S81.811A - Laceration without foreign body, right lower leg, initial encounter Condition: Good Record reviewed to determine appropriate education?: Yes Instructions: ED Laceration Ext Skin Glue
== END 2022-02-20 17:30 | disposition home or self-care (01) ==
LOC: ED 15:11
DX: S81.811A Laceration without foreign body, right lower leg, initial encounter (principal); W31.89XA Contact with other specified machinery, initial encounter; Y92.008 Other place in unspecified non-institutional (private) residence as the place of occurrence of the external cause
CPT/HCPCS: 12002; 90471; 99283

== ENCOUNTER 2022-09-03 13:07 | Outpatient (CLI) | payer MEDICARE, OTHER ==
--- NOTE | 2022-09-04 12:42 | Mammography Report ---
BILATERAL DIGITAL SCREENING MAMMOGRAM 3D/2D WITH EXAGGERATED CC: 09/03/2022 CLINICAL: Routine screening. Comparison is made to exams dated: 07/12/2021 mammogram, 05/10/2019 mammogram, 11/25/2018 mammogram, mammogram, 08/25/2017 mammogram, and 08/25/2016 mammogram - [facility]. There are scattered areas of fibroglandular density in both breasts (category b / 25%-50% glandular t issue). There is an equal density focal asymmetry in the right breast central to the nipple anterior depth. This is more prominent and increased in size. There is possible nipple retraction associated with th e focal asymmetry. No other significant masses, calcifications, or other findings are seen in either breast. IMPRESSION: INCOMPLETE: NEEDS ADDITIONAL IMAGING EVALUATION The equal density focal asymmetry in the right breast is indeterminate. Additional views with possib le ultrasound are recommended. Based on the Tyrer Cuzick model (a risk assessment model) the patients lifetime risk is 3.1% and her 10 year risk is 0.0%. According to the ACR, ACS, and NCCN guidelines, an annual breast MRI exam jim g with mammogram is recommended if the patients lifetime risk is 20% or greater. This exam was interpreted at Station ID: [id number]. NOTE: For mammograms, a report in lay terms will be sent to the patient. Approximately 15% of breast malignancies will not be visualized mammographically. In the management of a palpable breast mass, a negative mammogram must not discourage biopsy of a clinically suspicious lesion. Electronically Signed By: Hieu Kumar M.D. aty/:09/03/2022 17:34:59 ACR BI-RADS Category 0: Incomplete 3340F PARENCHYMAL PATTERN: (A) - The breast(s) demonstrate(s) scattered fibroglandular densities. BI-RADS CATEGORY: (0) - 0 Mammo and [place] [id number] Immediate follow-up LATERALITY: (R)
== END 2022-09-03 13:08 | disposition home or self-care (01) ==
LOC: DI 13:07
PROVIDERS: ATTEND Internal Medicine
DX: Z12.31 Encounter for screening mammogram for malignant neoplasm of breast (principal)

== ENCOUNTER 2022-09-19 12:37 | Outpatient (CLI) | payer MEDICARE, OTHER ==
--- NOTE | 2022-09-22 09:57 | Mammography Report ---
UNILATERAL RIGHT DIGITAL DIAGNOSTIC MAMMOGRAM 3D/2D: 09/19/2022 CLINICAL: Patient returns today to evaluate a focal asymmetry in the right breast. Comparison is made to exams dated: 09/03/2022 mammogram, 07/12/2021 mammogram, 05/10/2019 mammogram, mammogram, 11/11/2018 mammogram, and 08/25/2017 mammogram - [facility]. There are scattered areas of fibroglandular density in the right breast (category b / 25%-50% glandul ar tissue). There is a focal asymmetry in the right breast central to the nipple anterior depth. This is seen in additional views. No other significant masses or calcifications are seen in the breast. IMPRESSION: INCOMPLETE: NEEDS ADDITIONAL IMAGING EVALUATION The focal asymmetry in the right breast is indeterminate. A targeted ultrasound of the right breast is recommended and will be performed immediately following this exam. Based on the Tyrer Cuzick model (a risk assessment model) the patients lifetime risk is 3.1% and her 10 year risk is 0.0%. According to the ACR, ACS, and NCCN guidelines, an annual breast MRI exam jim g with mammogram is recommended if the patients lifetime risk is 20% or greater. This exam was interpreted at Station ID: [id number]. NOTE: For mammograms, a report in lay terms will be sent to the patient. Approximately 15% of breast malignancies will not be visualized mammographically. In the management of a palpable breast mass, a negative mammogram must not discourage biopsy of a clinically suspicious lesion. Electronically Signed By: Kayleen alcantar/:09/19/2022 13:38:28 ACR BI-RADS Category 0: Incomplete 3340F PARENCHYMAL PATTERN: (A) - The breast(s) demonstrate(s) scattered fibroglandular densities. BI-RADS CATEGORY: (0) - 0 Ultrasound [id number] Immediate follow-up LATERALITY: (B)
--- NOTE | 2022-09-22 09:57 | Ultrasound Report ---
LIMITED ULTRASOUND OF RIGHT BREAST: 09/19/2022 CLINICAL: Patient returns today to evaluate a focal asymmetry in the right breast. Comparison is made to exams dated: 09/19/2022 mammogram, 09/03/2022 mammogram, 07/12/2021 mammogram, ultrasound, 05/10/2019 mammogram, and 11/25/2018 ultrasound - [facility]. Color flow and real-time ultrasound of the right breast 6 o'clock region were performed on the areas of interest. Gamble scale images of the real-time examination were reviewed. There is a 0.8 cm x 0.6 cm x 1.1 cm irregular cyst in the right breast at 6 o'clock anterior depth. This irregular cyst is anechoic with a well-defined boundary and posterior acoustic enhancement. Col or flow imaging demonstrates that there is no vascularity present. This correlates with mammography f indings. IMPRESSION: BENIGN There is no sonographic evidence of malignancy. The 0.8 cm x 0.6 cm x 1.1 cm irregular cyst in the right breast is consistent with a simple cyst and is benign. A 1 year screening mammogram is recommended. This exam was interpreted at Station ID: [id number]. Electronically Signed By: Kayleen alcantar/:09/19/2022 14:19:53 Ultrasound BI-RADS: 2 Benign BI-RADS CATEGORY: (2) - 2 RECOMMENDATION: (ANNUAL) - Recommend routine annual screening mammography. [id number] 1 year screening LATERALITY: (B)
== END 2022-09-19 12:38 | disposition home or self-care (01) ==
LOC: DI 12:37
PROVIDERS: ATTEND Internal Medicine
DX: N60.01 Solitary cyst of right breast (principal)

== ENCOUNTER 2022-10-10 14:50 | Outpatient (CLI) | payer MEDICARE, OTHER ==
[2022-10-10 15:11] LABS: BILIRUBIN,URINE NEGATIVE (NEGATIVE); GLUCOSE, URINE (UA) NEGATIVE (NEGATIVE); KETONES,URINE (UA) NEGATIVE (NEGATIVE); LEUKOCYTE ESTERASE, URINE LARGE (NEGATIVE); NITRITE,URINE POSITIVE (NEGATIVE); OCCULT BLOOD,URINE TRACE-INTA (NEGATIVE); PROTEIN,URINE NEGATIVE (NEGATIVE); UROBILINOGEN,URINE 0.2 (NORMAL) E.U./dL (NORMAL)
[2022-10-10 15:14] LABS: CLARITY,URINE CLOUDY (CLEAR)
[2022-10-10 15:23] LABS: BACTERIA,URINE Many /HPF (None Seen); RBC,URINE 0-5 /HPF (0-5); SQUAMOUS EPITHELIAL CELL,UR MANY Squamous (<= Few); WBC,URINE >25 /HPF (0-5)
== END 2022-10-10 14:51 | disposition home or self-care (01) ==
LOC: LAB 14:50
PROVIDERS: ATTEND Urology
DX: R39.15 Urgency of urination (principal)
CPT/HCPCS: 81001; 87086

== ENCOUNTER 2022-11-04 11:55 | Emergency (ER) | payer MEDICARE, OTHER ==
[2022-11-04 13:54] LABS: BILIRUBIN,URINE NEGATIVE (NEGATIVE); GLUCOSE, URINE (UA) NEGATIVE (NEGATIVE); KETONES,URINE (UA) NEGATIVE (NEGATIVE); LEUKOCYTE ESTERASE, URINE SMALL (NEGATIVE); NITRITE,URINE NEGATIVE (NEGATIVE); OCCULT BLOOD,URINE NEGATIVE (NEGATIVE); PROTEIN,URINE NEGATIVE (NEGATIVE); UROBILINOGEN,URINE 0.2 (NORMAL) E.U./dL (NORMAL)
[2022-11-04 13:56] LABS: CLARITY,URINE CLEAR (CLEAR)
[2022-11-04 14:04] LABS: BACTERIA,URINE Few /HPF (None Seen); RBC,URINE 0-5 /HPF (0-5); SQUAMOUS EPITHELIAL CELL,UR FEW Squamous (<= Few)
--- NOTE | 2022-11-04 14:40 | ED Physician Documentation ---
History of Present Illness - Stated complaint Stated Complaint: FEMALE - Chief complaint Chief Complaint: Abd Pain - History obtained from History obtained from: Patient - History of Present Illness Pain level max: 5 Pain level now: 3 - Additonal information Additional information: Patient is an 82-year-old female who presents to the emergency department stating that she has had dysuria and pelvic pain for the past 5 weeks since having a cystoscopy performed at [facility]. She states that she has been trying to get back into see the urologist and she does not have an appointment for another 3 weeks. She tried contacting her primary care doctor who told her that they were too busy to see her. She had reportedly been trialed on Macrobid for potential UTI and states that she felt slightly better. 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 : None HEENT: Glaucoma Psych: None Musculoskeletal: None, Rheumatoid arthritis Derm: None - Past Surgical History Past Surgical History: Yes General: Cholecystectomy, Appendectomy Ortho: Hip replacement /FAST FOOD CREW LEAD: Breast reduction Cardiovascular: Other - Present Medications Home Medications: Ambulatory Orders Medication Instructions Recorded Confirmed Furosemide [Lasix] 40 mg PO DAILY 09/28/15 04/13/19 Remicade 500 mg IV Q56D 09/28/15 04/13/19 Lactobacill 46/B.animal/Inulin 1 cap PO BID 04/12/19 04/13/19 [Probiotic-10 10 Bill Cell Cap] Mecobalamin [B-12] 5,000 mcg PO DAILY 04/12/19 04/13/19 Milk Thistle 1 cap PO DAILY 04/12/19 04/13/19 Multivitamin [Multivitamins] 1 tab PO DAILY 04/12/19 04/13/19 Stanton-3/Dha/Epa/Fish Oil [Fish Oil 1 cap PO DAILY 04/12/19 04/13/19 1,000 mg Softgel] Spironolactone 25 mg PO DAILY 04/12/19 04/13/19 Turmeric Root Extract [Turmeric] 1 cap PO DAILY 04/12/19 04/13/19 Ubidecarenone [Co Q-10] 100 mg PO DAILY 04/12/19 04/13/19 Aspirin [Aspirin EC] 81 mg PO DAILY #30 tablet. 04/13/19 Atorvastatin Calcium [Lipitor] 80 mg PO DAILY PM #30 tablet 04/13/19 Cholecalciferol (Vitamin D3) 12,000 units PO DAILY 04/13/19 04/13/19 [Vitamin D3] Clopidogrel [Plavix] 75 mg PO DAILY #30 tablet 04/13/19 Metoprolol Succinate 25 mg PO DAILY 04/13/19 04/13/19 Nitroglycerin [Nitrostat] 0.4 mg SL Q5MIN PRN #30 tablet 11/06/20 Losartan [Cozaar] 11/04/22 11/04/22 Phenazopyridine HCl [Pyridium] 200 mg PO TID PRN #6 tablet 11/04/22 Vibegron [Gemtesa] 75 mg PO 11/04/22 cephALEXin [Keflex] 500 mg PO Q6H #20 cap 11/04/22 - Allergies Allergies/Adverse Reactions: Allergies Allergy/AdvReac Type Severity Reaction Status Date / Time ciprofloxacin [From Cipro] Allergy Edema Verified 11/04/22 12:35 ciprofloxacin HCl * Allergy Edema Verified 11/04/22 12:35 [From Cipro] metronidazole [From Flagyl] Allergy Emesis Verified 11/04/22 12:35 - Social History Does the pt smoke?: No Smoking Status: Never smoker Does the pt drink ETOH?: Yes Does the pt have substance abuse?: No - Immunizations Immunizations are current?: No - POLST Patient has POLST: No POLST Status: Full Code PD ED PE NORMAL - Vitals Vital signs reviewed: Yes - General General: Alert and oriented X 3, No acute distress - HEENT HEENT: Moist mucous membranes - Neck Neck: Supple, no meningeal sign - Cardiac Cardiac: RRR - Respiratory Respiratory: No respiratory distress, Clear bilaterally - Abdomen Abdomen: Soft, Non tender, Non distended - Female Female : Patient Centered Care Specialist present (Nelly RN), Other (external exam shows no rashes, no skin changes, slight white discharge) - Back Back: No CVA TTP - Derm Derm: Warm and dry - Neuro Neuro: Alert and oriented X 3 - Psych Psych: Normal mood, Normal affect Results - Vitals Vitals: Vital Signs - 24 hr 11/04/22 11/04/22 11/04/22 12:29 14:54 16:39 Temperature 36.9 C 36.8 C Heart Rate 88 87 86 Respiratory 16 16 16 Rate Blood Pressure 165/107 H 152/75 H 156/95 H O2 Saturation 99 99 97 Oxygen O2 Source Room air - Labs Labs: Laboratory Tests 11/04/22 11/04/22 13:46 14:45 Urine Color YELLOW Urine Clarity CLEAR Urine pH 6.0 Ur Specific [place] 1.010 Urine Protein NEGATIVE Urine Glucose (UA) NEGATIVE Urine Ketones NEGATIVE Urine Occult Blood NEGATIVE Urine Nitrite NEGATIVE Urine Bilirubin NEGATIVE Urine Urobilinogen 0.2 (NORMAL) Ur Leukocyte Esterase SMALL H Urine RBC 0-5 Urine WBC 4-5 Ur Squamous Epith Cells FEW Squamous Urine Bacteria Few Ur Microscopic Review INDICATED Urine Culture Comments INDICATED C. glabrata (PCR) NEGATIVE C. krusei (PCR) NEGATIVE Marti species DNA NEGATIVE T. vaginalis (PCR) NEGATIVE Bact Vaginosis (PCR) NEGATIVE PD Medical Decision Making - ED course Complexity details: reviewed results, re-evaluated patient, considered differential, d/w patient ED course: Patient with dysuria of uncertain etiology. Possible UTI, will treat with Keflex and Pyridium. Her bacterial vaginitis panel did finally come back negative. We will have her follow-up closely with her PCP for further care. Patient is well-appearing, nontoxic. Afebrile. Recommend that she contact her urologist as well. Patient counseled regarding signs and symptoms for which I believe and urgent re-evaluation would be necessary. Patient with good understanding of and agreement to plan and is comfortable going home at this time This document was made in part using voice recognition software. While efforts are made to proofread this document, sound alike and grammatical errors may occur. Departure - Departure Disposition: 01 Home, Self Care Clinical Impression: Dysuria, Pelvic pain in female Condition: Good Instructions: ED Dysuria Uncertain Cause Follow-Up: Orlin Loja MD [Primary Care Provider] - Within 1 week Prescriptions: cephALEXin [Keflex] 500 mg PO Q6H #20 cap Phenazopyridine HCl [Pyridium] 200 mg PO TID PRN #6 tablet PRN Reason: dysuria Comments: Your bacterial vaginitis panel is currently pending, I will call you with the results of the test when they are back later today. Any prescriptions will be sent to the [facility] pharmacy. Discharge Date/Time: 11/04/22 16:40
[2022-11-04 16:39] VITALS: BP 156/95
[2022-11-04 18:29] LABS: BACTERIAL VAGINOSIS DNA NEGATIVE (NEGATIVE); CANDIDA GROUP DNA NEGATIVE (NEGATIVE); CANDIDA KRUSEI DNA NEGATIVE (NEGATIVE); TRICHOMONAS VAGINALIS DNA NEGATIVE (NEGATIVE)
[2022-11-04 18:30] LABS: CANDIDA GLABRATA DNA NEGATIVE (NEGATIVE)
== END 2022-11-04 16:40 | disposition home or self-care (01) ==
LOC: ED 11:55
DX: R30.0 Dysuria (principal); R10.2 Pelvic and perineal pain; I10 Essential (primary) hypertension
CPT/HCPCS: 81001; 81003; 81514; 87086; 99283; 99284

== ENCOUNTER 2023-01-12 15:00 | Emergency (ER) | payer MEDICARE, OTHER ==
--- NOTE | 2023-01-12 15:44 | ED Physician Documentation ---
PD HPI HEAD INJURY - Stated complaint Stated Complaint: HEAD INJ,RT EYE PX - Chief complaint Chief Complaint: Trauma Hd/Nk - History obtained from History obtained from: Patient - History of Present Illness Mechanism of head injury: Fell Where head injury occurred: Home Timing - onset: How many days ago (3) Pain level max: 4 Pain level now: 4 Location of injury: Right, Front Quality of pain: Pain, Throbbing, Aching Associated symptoms: No: LOC, AMS, Amnesia, Nausea / vomiting, Neck pain, Paresthesias, Seizures, Ear drainage, Nasal drainage Symptoms improve with: Rest Symptoms worsen with: Movement Contributing factors: Anticoagulated (plavix). No: Intoxicated - Additional information Additional information: 82-year-old female presents to the emergency department with a head injury when she fell on Thursday. She does take Plavix. She states she has had a mild headache since she fell. She states that today she noticed a small amount of bruising on the periorbital area, medial aspect, right eye at the nasal side. 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 Cardiovascular: Other - Present Medications Home Medications: Ambulatory Orders Medication Instructions Recorded Confirmed Furosemide [Lasix] 40 mg PO DAILY 09/28/15 01/12/23 inFLIXimab [Remicade] 500 mg IV Q58D PRN #0 09/28/15 01/12/23 Lactobacill 46/B.animal/Inulin 1 cap PO DAILY 04/12/19 01/12/23 [Probiotic-10 10 Bill Cell Cap] Mecobalamin [B-12] 5,000 mcg PO DAILY 04/12/19 01/12/23 Milk Thistle 1 cap PO DAILY 04/12/19 01/12/23 Multivitamin [Multivitamins] 1 tab PO DAILY 04/12/19 01/12/23 Spironolactone 25 mg PO DAILY 04/12/19 01/12/23 Turmeric Root Extract [Turmeric] 1 cap PO DAILY 04/12/19 01/12/23 Ubidecarenone [Co Q-10] 100 mg PO DAILY 04/12/19 01/12/23 Atorvastatin Calcium [Lipitor] 80 mg PO DAILY PM #30 tablet 04/13/19 01/12/23 Cholecalciferol (Vitamin D3) 12,000 units PO DAILY 04/13/19 01/12/23 [Vitamin D3] Clopidogrel [Plavix] 75 mg PO DAILY #30 tablet 04/13/19 01/12/23 Metoprolol Succinate 25 mg PO DAILY 04/13/19 01/12/23 Losartan [Cozaar] 25 mg ORAL DAILY 11/04/22 01/12/23 Vibegron [Gemtesa] 75 mg PO DAILY 11/04/22 01/12/23 - Allergies Allergies/Adverse Reactions: Allergies Allergy/AdvReac Type Severity Reaction Status Date / Time ciprofloxacin [From Cipro] Allergy Edema Verified 01/12/23 15:11 ciprofloxacin HCl * Allergy Edema Verified 01/12/23 15:11 [From Cipro] metronidazole [From Flagyl] Allergy Emesis Verified 01/12/23 15:11 terbinafine Allergy Unknown Verified 01/12/23 15:11 - Social History Does the pt smoke?: No Smoking Status: Never smoker Does the pt drink ETOH?: Yes Does the pt have substance abuse?: No - Immunizations Immunizations are current?: No - POLST Patient has POLST: No POLST Status: Full Code PD ED PE NORMAL - Vitals Vital signs reviewed: Yes - General General: Alert and oriented X 3, No acute distress, Well developed/nourished - HEENT HEENT: Atraumatic, PERRL, EOMI, Moist mucous membranes, Pharynx benign, Other (No scalp hematomas. No bruising to the forehead. No palpable skull fractures. There is a small amount of bruising near the medial canthus/periorbital area on the medial aspect of the right eye.) - Neck Neck: Supple, no meningeal sign, No bony TTP - Cardiac Cardiac: RRR, Strong equal pulses - Respiratory Respiratory: No respiratory distress, Clear bilaterally - Abdomen Abdomen: Soft, Non tender, Non distended - Back Back: No CVA TTP, No spinal TTP - Derm Derm: Warm and dry - Extremities Extremities: No edema - Neuro Neuro: Alert and oriented X 3, shoe laster 2-12 intact, No motor deficit, No sensory deficit, Normal speech Eye Opening: Spontaneous Motor: Obeys Commands Verbal: Oriented GCS Score: 15 - Psych Psych: Normal mood, Normal affect Results - Vitals Vitals: Vital Signs - 24 hr 01/12/23 01/12/23 01/12/23 15:06 15:25 16:29 Temperature 36.4 C L Heart Rate 89 96 75 Respiratory 16 16 16 Rate Blood Pressure 158/91 H 149/81 H 118/62 O2 Saturation 97 95 98 Oxygen O2 Source Room air - Rads (name of study) head CT Relevant Findings:: Final report received, See rad report PD Medical Decision Making - ED course Complexity details: reviewed results, re-evaluated patient, considered different ial, d/w patient ED course: No acute findings on head CT. No skull fracture. No intracranial hemorrhage. GCS 15. Patient not complaining of any significant pain at this time. We will have her follow-up with her doctor for further care. Appears to be continued bruising from her fall a few days ago. Vision is normal. Extraocular movements intact. Patient counseled regarding signs and symptoms for which I believe and urgent re-evaluation would be necessary. Patient with good understanding of and agreement to plan and is comfortable going home at this time This document was made in part using voice recognition software. While efforts are made to proofread this document, sound alike and grammatical errors may occur. Departure - Departure Disposition: 01 Home, Self Care Clinical Impression: Closed head injury Qualifiers: Encounter type: initial encounter Qualified Code(s): S09.90XA - Unspecified injury of head, initial encounter Condition: Good Instructions: ED Head Injury Closed Follow-Up: your,doctor as needed [Other] Comments: Your head CT does not show any acute abnormalities. Please follow-up with your doctor for further care. Please return if you worsen. Continue your current medications at home. The bruising will likely continue over the next few days. Discharge Date/Time: 01/12/23 16:29
--- NOTE | 2023-01-12 16:01 | CT Report ---
PROCEDURE: HEAD WO INDICATIONS: head injury 3 days ago, pt on plavix TECHNIQUE: Noncontrast 4.5 mm thick angled axial sections acquired from the foramen magnum to the vertex. For r adiation dose reduction, the following was used: automated exposure control, adjustment of mA and/or kV according to patient size. COMPARISON: None. FINDINGS: Image quality: Excellent. CSF spaces: Basal cisterns are patent. No extra-axial fluid collections. Ex vacuo dilatation of the occipital horn of the right lateral ventricle. Ventricles are otherwise normal in size and shape. Brain: No midline shift. No intracranial masses or hemorrhage. Gamble-white matter interface is norm al. 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 Age-related volume loss and very mild, age appropriate small vessel ischemic change. Skull and face: Calvarium and visualized facial bones are intact, without suspicious lesions. Sinuses: Visualized sinuses and mastoids are clear. IMPRESSION: 1. 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 2. No acute intracranial process. Reviewed by: Joni Galvin MD on 01/12/2023 4:00 PM PDT Approved by: Joni Galvin MD on 01/12/2023 4:00 PM PDT Station ID: [id number]
[2023-01-12 16:29] VITALS: BP 118/62
== END 2023-01-12 16:29 | disposition home or self-care (01) ==
LOC: ED 15:00
DX: S09.90XA Unspecified injury of head, initial encounter (principal); W19.XXXA Unspecified fall, initial encounter; I10 Essential (primary) hypertension; E78.00 Pure hypercholesterolemia, unspecified; Z79.02 Long term (current) use of antithrombotics/antiplatelets; Z79.899 Other long term (current) drug therapy
CPT/HCPCS: 99283; 99284

== ENCOUNTER 2024-02-10 09:28 | Outpatient (CLI) | payer MEDICARE, OTHER ==
--- NOTE | 2024-02-11 10:41 | Mammography Report ---
BILATERAL DIGITAL SCREENING MAMMOGRAM 3D/2D: 02/10/2024 CLINICAL: Routine screening. Comparison is made to exams dated: 09/19/2022 mammogram, 09/03/2022 mammogram, 07/12/2021 mammogram, mammogram, 11/25/2018 mammogram, and 11/11/2018 mammogram - [facility]. Both breasts are heterogeneously dense, which may obscure small masses (category c / 51-75% glandular tissue). No significant masses, calcifications, or other findings are seen in either breast. There has been no significant interval change. IMPRESSION: NEGATIVE There is no mammographic evidence of malignancy. A 1 year screening mammogram is recommended. Based on the Tyrer Cuzick model (a risk assessment model) the patient's lifetime risk is 2.2% and her 10 year risk is 0.0%. According to the ACR, ACS, and NCCN guidelines, an annual breast MRI exam jim g with mammogram is recommended if the patient's lifetime risk is 20% or greater. This exam was interpreted at Station ID: [id number]. NOTE: For mammograms, a report in lay terms will be sent to the patient. Approximately 15% of breast malignancies will not be visualized mammographically. In the management of a palpable breast mass, a negative mammogram must not discourage biopsy of a clinically suspicious lesion. Electronically Signed By: Katerina das/tatianna:02/10/2024 15:03:06 letter sent: No_Letter ACR BI-RADS Category 1: Negative 3341F PARENCHYMAL PATTERN: (D) - The breast(s) demonstrate(s) heterogeneously dense fibroglandular parasaely ma. BI-RADS CATEGORY: (1) - 1 RECOMMENDATION: (ANNUAL) - Recommend routine annual screening mammography. [id number] 1 year screening LATERALITY: (B)
== END 2024-02-10 09:29 | disposition home or self-care (01) ==
LOC: DI 09:28
PROVIDERS: ATTEND Internal Medicine
DX: Z12.31 Encounter for screening mammogram for malignant neoplasm of breast (principal); R92.333 Mammographic heterogeneous density, bilateral breasts